=== PATIENT | male | born 1965 | race Caucasian/White ===

== ENCOUNTER → 2016-09-17 | Outpatient (CLI) | payer BC | END | disposition home or self-care (01) | LOC: PTMAIN 15:57 | PROVIDERS: ATTEND Otolaryngology | DX: K21.9 Gastro-esophageal reflux disease without esophagitis (principal) ==

== ENCOUNTER 2016-11-02 09:45 | Day surgery (SDC) | payer BC ==
[2016-10-29 18:28] VITALS: BMI 29.5
--- NOTE | 2016-11-02 07:42 | HP ---
DATE OF ADMISSION: 11/02/2016 CHIEF COMPLAINT: Lesion of the left nasal septum. HISTORY OF PRESENT ILLNESS: This patient is a 51-year-old male who was originally seen in my office complaining of having a nonhealing sore in his left nostril which had been there for at least a couple years. The patient states the area tends to become crusty and bleeds slightly and goes away completely and then returns. He denies any pain in the area or any drainage. 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 The patient was placed on approximately a 3 course of Bactroban ointment which was applied 3 times daily. Upon returning to the office after 3 weeks clinical examination revealed the area showed little evidence of significant healing. The patient does smoke cigarettes and was advised to quit for obvious health reasons and stated that he definitely would comply. Because of the nonhealing nature of this lesion, it was recommended the patient undergo a biopsy of this lesion, and at the same time we would then cauterize the lesion with electrocautery in an effort to promote healing. The patient was advised that my concern was that this might represent some type of low-grade malignancy although it would be quite rare in this particular area. PAST MEDICAL HISTORY: Reveals the patient has no known allergies to medications. He smokes approximately 2 to 4 cigars per week and was advised to quit for obvious health reasons. His current medications include Lipitor. Review of systems is positive with respect to the metabolic/endocrine system, which is positive for hypercholesterolemia. The remainder of review of systems is completely unremarkable. Previous surgeries include fundoplasty, surgery of the elbow, tonsillectomy and adenoidectomy, bilateral inguinal hernias and also an umbilical hernia repair. PHYSICAL EXAMINATION: Patient is a 51-year-old male who is alert and cooperative. HEENT EXAMINATION: Patient is normocephalic. Tympanic membranes are normal. Middle ear spaces are free of any fluid or infection. Pupils equal, round, and reactive to light and accommodation. Extraocular movements are within normal limits. Intranasal examination reveals moderate to severe septal deviation with compensatory hypertrophy of inferior turbinates and a moderate amount of clear mucus on the mucous membranes and draining down the posterior pharynx. Attention or to the left septum reveals the patient has approximately a 3 to 4 mm macular papular lesion which has slightly eroded into the mucous membrane of the nasal septum. There is some slight crusting in the area and the area is nontender to palpation. No other suspicious lesions are noted. The area is not actively bleeding at this time and appears to be quite shallow and there does not appear to be any bare cartilage exposed. Examination of oropharynx, palpation of the neck, cranial nerves II through XII and remainder of the head and neck exam are all within normal limits. The remainder of the head and neck exam is essentially unremarkable. CHEST/CARDIOVASCULAR: Both lung tao are clear to percussion and auscultation. Patient is in regular sinus rhythm. S1 and S2 are present without any murmurs, S3s or S4s. Peripheral pulses are bilaterally symmetrical and within normal limits. ABDOMEN: No evidence of any masses, megaly or tenderness. The abdomen is soft. Skin is unremarkable. Musculoskeletal and neurological are within normal limits. Rectal exam is deferred at this time because the patient has this done on a regular basis at his family physician's office. The remainder of physical exam is unremarkable. IMPRESSION: Suspicious lesion of the left nasal septum, suspect malignancy. PLAN: The patient is scheduled to undergo a biopsy of lesion of the left nasal septum with possible electrocautery of lesion under general anesthesia. Attention RNs in the presurgical area: I have not ordered any presurgical prophylactic antibiotics for this patient. The only medication that I have ordered is for the patient to receive 1000 mg of Ofirmev IV, to be given once an intravenous line has been established. If the pharmacy department sends any presurgical prophylactic antibiotics to the presurgical area for this patient they should be returned to the pharmacy and the patient's account should be credited appropriately. I have explained the operation/procedure to the patient, including the risks, benefits, side effects, alternative therapies (including not receiving the proposed treatment or service), the likelihood of the patient achieving his/her goals, and potential recuperation problems for the procedure/sedation/analgesia, as well as any blood products, if indicated. I also explained to the patient the risks, benefits, and side effects of the alternatives, as well as the risks related to not receiving the proposed procedure, care treatment or services.
[~2016-11-02 09:45] MED LIST: DEXAMETHASONE SOD PHOSPHATE 10 MG/ML 1 ML VIAL IV ONE; HYDROmorphone 1 MG/ML 1 ML SYRINGE IVP PRN; LACTATED RINGERS 1,000 ML IV SCH; MIDAZOLAM 2 MG/2 ML VIAL IV PRN; ONDANSETRON 4 MG/2 ML VIAL IVP ONE; Pre Op ABX Message 1 EACH MISC MISCELLANE ONE; SCOPOLAMINE 1.5MG/72HR PATCH TRANSDERM ONE
[2016-11-02] MEDS ORDERED: ACETAMINOPHEN IV (For NPO) 1,000 MG in EMPTY BAG 1 BAG IVPB ONE (10:45)
[2016-11-02] MEDS ORDERED: LIDOCAINE 1% 20 ML VIAL (10MG/ML) FOR IV START INTRADERMA ONE (11:11)
[2016-11-02] MEDS ORDERED: GLYCOPYRROLATE 0.2 MG/ML 2 ML VIAL ONE (12:00)
[2016-11-02] MEDS ORDERED: SUCCINYLCHOLINE CHLORIDE 100 MG/5 ML SYR IV ONE (12:00)
[2016-11-02] MEDS ORDERED: fentaNYL (PF) 50 MCG/ML 2 ML AMP ONE (12:00)
[2016-11-02] MEDS ORDERED: LIDOCAINE 1% INJ 10MG/ML (20 ML MDV) ONE (12:00)
[2016-11-02] MEDS ORDERED: ePHEDrine 50 MG/ML 1 ML AMP ONE (12:00)
[2016-11-02] MEDS ORDERED: PROPOFOL 10 MG/ML 20 ML VIAL IV ONE (12:00)
[2016-11-02] MEDS ORDERED: MIDAZOLAM 2 MG/2 ML VIAL ONE (12:00)
[2016-11-02] MEDS ORDERED: OXYMETAZOLINE 0.05% NASL SPRAY 15 ML NASAL ONE (12:22)
[2016-11-02] MEDS ORDERED: EPINEPHrine 1 MG/ML 1 ML AMP IRRIGATION ONE (12:29)
[2016-11-02 13:12] VITALS: TEMP 97.1
[2016-11-02 13:21] VITALS: RESP 16
[2016-11-02 14:15] VITALS: BP 137/88; PULSE 64
--- NOTE | 2016-11-02 17:52 | OP ---
DATE OF SERVICE: 11/02/2016 SURGEON: CELINA NEWMAN MD GREASE MAKER: PREOPERATIVE DIAGNOSIS: Lesion of the left nasal septum approximately 4 to 5 mm in diameter. POSTOPERATIVE DIAGNOSIS: Lesion of the left nasal septum approximately 4 to 5 mm in diameter; final pathology pending. OPERATION: Biopsy and cauterization of lesion of the left nasal septum. ANESTHESIA: General anesthetic. ESTIMATED BLOOD LOSS: Less than 5 mL. SPECIMENS REMOVED: COMPLICATIONS: None. OPERATIVE FINDINGS: DESCRIPTION OF PROCEDURE: The patient was placed on the operating table in supine position. After uneventful induction and endotracheal intubation, satisfactory general anesthesia was obtained. Next, the patient's head was draped in the usual and customary fashion, following which the left nasal chamber was examined, and subsequently a Cottonoid which had been saturated initially with Afrin nasal spray was placed in the left naris and left there for approximately 7 minutes to achieve maximum vasoconstriction of the area. Next, using a nasal speculum and under direct observation, the Cottonoid was removed. It was noted that the patient had a scab over the area, and this was removed using a pair of bayonet forceps without difficulty. Bleeding at this time was controlled by applying a small amount of adrenaline/epinephrine 1:1000 to a Cottonoid and applying this to the area for approximately 5 minutes. The anesthesia department was alerted to the fact that adrenaline would be used so that they would be aware in case there was any increase in blood pressure or heart rate. After approximately 5 to 7 minutes, the Cottonoid was removed and hemostasis was obtained. Multiple biopsies of the area were taken using a pair of up-biting microlaryngeal forceps, and the specimen was sent in formalin to Pathology for permanent sectioning. Next, with the electrocautery set on a low setting of 10 soto, the area was lightly cauterized with suction cautery. Next, the entire area was covered generously with the hemostatic agent Hemaderm powder. A period of approximately 5 to 10 minutes was allowed to elapse, and further inspection revealed no active bleeding. At this point the procedure was terminated. There were no intraoperative complications. The patient tolerated the procedure well and was returned to the recovery room in satisfactory condition. Final pathology is pending.
== END 2016-11-02 14:35 | disposition home or self-care (01) ==
LOC: OR 09:45
PROVIDERS: ATTEND Otolaryngology
DX: J34.89 Other specified disorders of nose and nasal sinuses (principal); J34.2 Deviated nasal septum; J34.3 Hypertrophy of nasal turbinates; F17.210 Nicotine dependence, cigarettes, uncomplicated; E78.5 Hyperlipidemia, unspecified; E78.00 Pure hypercholesterolemia, unspecified; Z79.899 Other long term (current) drug therapy
CPT/HCPCS: 88305; 30100; J2250; J0171; J1100; J2405; J2001; J3010; J0131; J0330; J2704

== ENCOUNTER 2019-04-08 12:15 | Emergency (ER) | payer BC ==
[2019-04-08] MEDS ORDERED: SODIUM CHLORIDE 0.9% 1,000 ML IV STA (13:01)
[2019-04-08] MEDS ORDERED: MORPHINE SULFATE 4 MG/ML SYRINGE IV STA (13:02)
--- NOTE | 2019-04-08 13:08 | ED ---
General Adult HPI - General Chief complaint: Fall Stated complaint: fell 8'-10' ladder/hit head Time Seen by Provider: 04/08/19 12:29 Source: patient Mode of arrival: ambulatory Limitations: no limitations - History of Present Illness Initial comments: Dictation was produced using [employer] dictation software. please excuse any grammatical, word or spelling errors. Chief Complaint: 53-year-old male presents with fall from ladder. History of Present Illness: 53-year-old male he has a significant past medical history. He states he was cutting branches. He had a letter on top of his truck. He lost his footing. His foot got caught and causing him to fall to the ground. He fell approximately 8-10 feet landing on his back. States that of all his symptoms his back hurts the most. Patient states that he did strike his head. Denies any blood thinners. Denies any daily medications. The ROS documented in this emergency department record has been reviewed and confirmed by me. Those systems with pertinent positive or negative responses have been documented in the HPI. All other systems are other negative and/or noncontributory. PHYSICAL EXAM: General Impression: Alert and oriented x3, not in acute distress, acute distress secondary to pain HEENT: Normocephalic atraumatic, extra-ocular movements intact, pupils equal and reactive to light bilaterally, mucous membranes moist. Cardiovascular: Heart regular rate and rhythm, S1&S2 audible, no murmurs, rubs or gallops Chest: Lungs clear to auscultation bilaterally, no rhonchi, no wheeze, no rales Abdomen: Bowel sounds present, abdomen soft, non-tender, non-distended, no organomegaly Musculoskeletal: Pulses present and equal in all extremities, no peripheral edema, tenderness around the lower back region Motor: no focal deficits noted Neurological: CN II-XII grossly intact, no focal motor or sensory deficits noted Skin: Intact with no visualized rashes Psych: Normal affect and mood ED course: 53-year-old male presents with back pain after fall. On arrival shows heart rate of 111 cumbersome vital signs within acceptable limits. Plan CT was obtained showing no acute traumatic injuries. Patient has chronic L1 compression fracture. Laboratory evaluation obtained showing no acute processes. Chest x-ray and pelvis x-ray were canceled given that were not performed in a timely fashion and CTs of the chest abdomen pelvis were completed and read. Patient is an Yara with minimal complications. Solid by mouth. Patient urinating without complications. Patient's pain is controlled. Is told to expect worsening symptoms tomorrow however should improve. Return parameters discussed. Patient clear for discharge. EKG interpretation: Ventricular rate 91, normal sinus rhythm,. Interval 166, QS 92, QTc 450. No VA prolongation, no QTC prolongation, no ST or T-wave changes noted. Overall, this EKG is unremarkable - Related Data Home Medications Medication Instructions Recorded Confirmed No Known Home Medications 04/08/19 04/08/19 Allergies Allergy/AdvReac Type Severity Reaction Status Date / Time codeine AdvReac Nausea & Verified 04/08/19 13:28 Vomiting Review of Systems ROS Statement: Those systems with pertinent positive or pertinent negative responses have been documented in the HPI. ROS Other: All systems not noted in ROS Statement are negative. Past Medical History Past Medical History: GERD/Reflux, Hyperlipidemia Additional Past Medical History / Comment(s): ALLERGIES. NASAL LESION CURRENTLY . HX GERD, Hiatal Hernia REPAIRED. History of Any Multi-Drug Resistant Organisms: None Reported Past Surgical History: Hernia Repair, Orthopedic Surgery, Tonsillectomy Additional Past Surgical History / Comment(s): LT Elbow TENDONITIS SURG. Fundoplication 03/05/2015. REPAIR KHALIF ING, [facility] HERNIA REPAIR. Past Anesthesia/Blood Transfusion Reactions: No Reported Reaction Past Psychological History: No Psychological Hx Reported Smoking Status: Current some day smoker Past Alcohol Use History: Occasional Past Drug Use History: None Reported - Past Family History Father Family Medical History: Cancer General Exam Limitations: no limitations Course Vital Signs 04/08/19 12:17 Temperature 97.8 F Pulse Rate 111 H Respiratory 18 Rate Blood Pressure 151/103 O2 Sat by Pulse 98 Oximetry Medical Decision Making - Lab Data Result diagrams: 04/08/19 13:05 04/08/19 13:05 Lab Results 04/08/19 04/08/19 04/08/19 Range/Units 12:59 13:05 13:05 WBC 7.3 (3.8-10.6) k/uL RBC 5.48 (4.30-5.90) m/uL Hgb 15.7 (13.0-17.5) gm/dL Hct 46.8 (39.0-53.0) % MCV 85.5 (80.0-100.0) fL MCH 28.7 (25.0-35.0) pg MCHC 33.6 (31.0-37.0) g/dL RDW 13.2 (11.5-15.5) % Plt Count 228 (150-450) k/uL Neutrophils % 73 % Lymphocytes % 18 % Monocytes % 5 % Eosinophils % 2 % Basophils % 1 % Neutrophils # 5.4 (1.3-7.7) k/uL Lymphocytes # 1.3 (1.0-4.8) k/uL Monocytes # 0.3 (0-1.0) k/uL Eosinophils # 0.1 (0-0.7) k/uL Basophils # 0.1 (0-0.2) k/uL PT (9.0-12.0) sec INR (<1.2) APTT (22.0-30.0) sec Sodium 140 (137-145) mmol/L Potassium 3.8 (3.5-5.1) mmol/L Chloride 108 H (98-107) mmol/L Carbon Dioxide 20 L (22-30) mmol/L Anion Gap 12 mmol/L BUN 17 (9-20) mg/dL Creatinine 0.87 (0.66-1.25) mg/dL Est GFR (CKD-EPI)AfAm >90 (>60 ml/min/1.73 sqM) Est GFR (CKD-EPI)NonAf >90 (>60 ml/min/1.73 sqM) Glucose 109 H (74-99) mg/dL Calcium 9.8 (8.4-10.2) mg/dL Total Bilirubin 0.6 (0.2-1.3) mg/dL AST 28 (17-59) U/L ALT 41 (21-72) U/L Alkaline Phosphatase 69 (38-126) U/L Total Protein 7.3 (6.3-8.2) g/dL Albumin 4.4 (3.5-5.0) g/dL Blood Type Blood Type Confirm O Positive Blood Type Recheck Bld Type Recheck Status Antibody Screen Spec Expiration Date 04/08/19 04/08/19 Range/Units 13:05 13:05 WBC (3.8-10.6) k/uL RBC (4.30-5.90) m/uL Hgb (13.0-17.5) gm/dL Hct (39.0-53.0) % MCV (80.0-100.0) fL MCH (25.0-35.0) pg MCHC (31.0-37.0) g/dL RDW (11.5-15.5) % Plt Count (150-450) k/uL Neutrophils % % Lymphocytes % % Monocytes % % Eosinophils % % Basophils % % Neutrophils # (1.3-7.7) k/uL Lymphocytes # (1.0-4.8) k/uL Monocytes # (0-1.0) k/uL Eosinophils # (0-0.7) k/uL Basophils # (0-0.2) k/uL PT 9.8 (9.0-12.0) sec INR 0.9 (<1.2) APTT 22.3 (22.0-30.0) sec Sodium (137-145) mmol/L Potassium (3.5-5.1) mmol/L Chloride (98-107) mmol/L Carbon Dioxide (22-30) mmol/L Anion Gap mmol/L BUN (9-20) mg/dL Creatinine (0.66-1.25) mg/dL Est GFR (CKD-EPI)AfAm (>60 ml/min/1.73 sqM) Est GFR (CKD-EPI)NonAf (>60 ml/min/1.73 sqM) Glucose (74-99) mg/dL Calcium (8.4-10.2) mg/dL Total Bilirubin (0.2-1.3) mg/dL AST (17-59) U/L ALT (21-72) U/L Alkaline Phosphatase (38-126) U/L Total Protein (6.3-8.2) g/dL Albumin (3.5-5.0) g/dL Blood Type O Positive Blood Type Confirm Blood Type Recheck No Previous Record Bld Type Recheck Status CABO Indicated Antibody Screen NEGATIVE Spec Expiration Date 04/11/2019 - 2304 Disposition Clinical Impression: Fall, Back strain Disposition: HOME SELF-CARE Condition: Good Instructions (If sedation given, give patient instructions): Fall Prevention for Older Adults (ED) Is patient prescribed a controlled substance at d/c from ED?: No Referrals: None,Stated [Primary Care Provider] - 1-2 days Time of Disposition: 16:15
[2019-04-08 13:25] LABS: Basophils # (A) 0.1 k/uL (0-0.2); Basophils % (A) 1 %; Eosinophils # (A) 0.1 k/uL (0-0.7); Eosinophils % (A) 2 %; HCT 46.8 % (39.0-53.0); HGB 15.7 gm/dL (13.0-17.5); Lymphocytes # (A) 1.3 k/uL (1.0-4.8); Lymphocytes % (A) 18 %; MCH 28.7 pg (25.0-35.0); MCHC 33.6 g/dL (31.0-37.0); MCV 85.5 fL (80.0-100.0); Mean Platelet Volume 6.9; Monocytes # (A) 0.3 k/uL (0-1.0); Monocytes % (A) 5 %; Neutrophils # (A) 5.4 k/uL (1.3-7.7); Neutrophils % (A) 73 %; Platelet Count 228 k/uL (150-450); RBC 5.48 m/uL (4.30-5.90); RDW 13.2 % (11.5-15.5); WBC 7.3 k/uL (3.8-10.6)
[2019-04-08 13:44] LABS: ALT 41 U/L (21-72); AST 28 U/L (17-59); African American GFR (CKD) >90 (>60 ml/min/1.73 sqM); Albumin 4.4 g/dL (3.5-5.0); Alkaline Phosphatase 69 U/L (38-126); Anion Gap 12 mmol/L; Blood Urea Nitrogen 17 mg/dL (9-20); Calcium 9.8 mg/dL (8.4-10.2); Carbon Dioxide 20 mmol/L (22-30); Chloride 108 mmol/L (98-107); Glucose 109 mg/dL (74-99); Non-African American GFR(CKD) >90 (>60 ml/min/1.73 sqM); Potassium 3.8 mmol/L (3.5-5.1); Sodium 140 mmol/L (137-145); Total Bilirubin 0.6 mg/dL (0.2-1.3); Total Protein 7.3 g/dL (6.3-8.2)
[2019-04-08 13:46] LABS: INR 0.9 (<1.2); Partial Thromboplastin Time 22.3 sec (22.0-30.0); Prothrombin Time 9.8 sec (9.0-12.0)
--- NOTE | 2019-04-08 14:18 | CT ---
EXAMINATION TYPE: CT brain tanja martínez DATE OF EXAM: 04/08/2019 COMPARISON: NONE HISTORY: Fall from ladder CT DLP: 1510.2 mGycm Automated exposure control for dose reduction was used. TECHNIQUE: CT scan of the head and cervical spine are performed without contrast. FINDINGS: BRAIN: Central structures are midline. There is no evidence of hydrocephalus. No acute focal lesion, mass effect or midline shift is seen. I do not see evidence of intracranial blood. Visualized portions of the paranasal sinuses and mastoids are clear. The bony calvarium is intact. IMPRESSION: NORMAL CT SCAN OF THE BRAIN. CERVICAL SPINE: Visualized portions of the lungs are clear. Prevertebral soft tissues are normal. Vertebral body height and alignment are maintained. Atlantoaxial relationships are normal. There is d egenerative disc disease and hypertrophic spondylosis at C5-6 and C6-7. There is mild uncovertebral j oint disease present at these levels. The facets are unremarkable. There is no definite protrusion id entified. No fracture is seen. IMPRESSION: 1. NO ACUTE OSSEOUS LESION. 2. DEGENERATIVE CHANGE.
--- NOTE | 2019-04-08 14:27 | CT ---
EXAMINATION TYPE: CT ChestAbdPelvis w con DATE OF EXAM: 04/08/2019 COMPARISON: NONE HISTORY: Right-sided abdominal pain. CT DLP: 682.60 mGycm Automated exposure control for dose reduction was used. TECHNIQUE: Helical acquisition through the abdomen and pelvis was obtained without oral contrast but following the intravenous administration of 100 mL of Isovue 300. The data was formatted in the axia l, coronal and sagittal projections. FINDINGS: There is atelectasis at the lung bases bilaterally. There is no evidence of pneumothorax. No significant axillary, mediastinal or hilar adenopathy. There is no pleural or pericardial fluid. T he heart is mildly enlarged. There is a small, sliding hiatal hernia. Within the abdomen, the liver, spleen and gallbladder are normal. Both adrenal glands are normal. There is a simple appearing cyst 2.7 cm cyst arising from the lower pole of the right kidney. The pancreas is unremarkable. There is no significant retroperitoneal, iliac or inguinal adenopathy. The bladder is unremarkable. There is some prostate calcification present. There is no significant diverticular change and there is no radiographic evidence of diverticulitis. The appendix is normal. Small bowel loops are normal in caliber. No free fluid and no free air is seen. There is a chronic wedge compression fracture of the L1 vertebral body, unchanged from previous. No a dditional fractures are identified. IMPRESSION: 1. NO ACUTE POSTTRAUMATIC ABNORMALITY. 2. CHRONIC WEDGE COMPRESSION FRACTURE OF THE L1 VERTEBRAL BODY. 3. 2.7 CM, SIMPLE APPEARING RIGHT RENAL CYST.
[2019-04-08] MEDS ORDERED: KETOROLAC 30 MG/ML 1 ML VIAL IVP STA (15:31)
[2019-04-08 16:45] VITALS: BP 137/93; PULSE 85; RESP 16; TEMP 97.6
== END 2019-04-08 16:44 | disposition home or self-care (01) ==
LOC: EC 12:15
DX: S39.012A Strain of muscle, fascia and tendon of lower back, initial encounter (principal); M48.56XA Collapsed vertebra, not elsewhere classified, lumbar region, initial encounter for fracture; S09.90XA Unspecified injury of head, initial encounter; F17.200 Nicotine dependence, unspecified, uncomplicated; Z88.5 Allergy status to narcotic agent; W11.XXXA Fall on and from ladder, initial encounter
CPT/HCPCS: 36415; 93005; 86900; 86901; 80053; 85025; 85610; 85730; 86850; 72125; 70450; 71260; 74177; 99284; 96374; 96375; 96361; J2270; J1885; Q9967

== ENCOUNTER → 2019-04-14 | Outpatient (CLI) | payer BC ==
--- NOTE | 2019-04-15 10:12 | NM ---
EXAMINATION TYPE: NM bone scan whole body DATE OF EXAM: 04/14/2019 COMPARISON: NONE HISTORY: Lumbar radiculopathy Delayed whole-body scanning was performed following the injection of 24.3 mCi Tc 99m MDP. Images acq uired 3.5 hours post injection. FINDINGS: There Is evidence of increased uptake involving anterior left ribs 5 through 7 which may reflect keya te fractures. Degenerative uptake is seen of the shoulders, sternoclavicular joints, scattered throug hout the thoracic spine and lumbar spine, bilateral hips compatible with degenerative uptake. No inte nse uptake is seen to suggest underlying lesion. IMPRESSION: 1. Degenerative uptake. 2. Left rib uptake may reflect healed chronic fractures. Correlate clinically.
--- NOTE | 2019-04-17 13:14 | NM ---
ADDENDUM Please Note SPECT imaging was also performed. Addendum Dictated By:Cheo Peraza MD Addendum Signed By: <Electronically signed by Cheo Peraza MD in O V> Signed Date/Time: 04/15/19 1149 EXAMINATION TYPE: NM bone scan whole body DATE OF EXAM: 04/14/2019 COMPARISON: NONE HISTORY: Lumbar radiculopathy Delayed whole-body scanning was performed following the injection of 24.3 mCi Tc 99m MDP. Images acquired 3.5 hours post injection. FINDINGS: There Is evidence of increased uptake involving anterior left ribs 5 through 7 which may reflect remote fractures. Degenerative uptake is seen of the shoulders, sternoclavicular joints, scattered throughout the thoracic spine and lumbar spine, bilateral hips compatible with degenerative uptake. No intense uptake is seen to suggest underlying lesion. IMPRESSION: 1. Degenerative uptake. 2. Left rib uptake may reflect healed chronic fractures. Correlate clinically. MTDD
== END | disposition home or self-care (01) ==
LOC: RADNMMAIN 11:10
PROVIDERS: ATTEND Physical Medicine & Rehabilitation
DX: R94.8 Abnormal results of function studies of other organs and systems (principal); M47.27 Other spondylosis with radiculopathy, lumbosacral region
CPT/HCPCS: 78306; 78320; A9503

== ENCOUNTER 2020-05-07 07:01 | Day surgery (SDC) | payer BC ==
[2020-05-06 10:10] VITALS: BMI 28.8
[~2020-05-07 07:01] MED LIST changes: -DEXAMETHASONE SOD PHOSPHATE 10 MG/ML 1 ML VIAL IV ONE; -HYDROmorphone 1 MG/ML 1 ML SYRINGE IVP PRN; -MIDAZOLAM 2 MG/2 ML VIAL IV PRN; -ONDANSETRON 4 MG/2 ML VIAL IVP ONE; -Pre Op ABX Message 1 EACH MISC MISCELLANE ONE; -SCOPOLAMINE 1.5MG/72HR PATCH TRANSDERM ONE
[2020-05-07 07:15] VITALS: TEMP 97.7
[2020-05-07] MEDS ORDERED: LIDOCAINE 1% INJ 10MG/ML (20 ML MDV) ONE (07:54)
[2020-05-07] MEDS ORDERED: IOPAMIDOL M200 10 ML VIAL ONE (07:54)
[2020-05-07] MEDS ORDERED: DEXAMETHASONE SOD PHOSPHATE 10 MG/ML 1 ML VIAL ONE (07:54)
[2020-05-07] MEDS ORDERED: MIDAZOLAM 2 MG/2 ML VIAL ONE (07:54)
[2020-05-07] MEDS ORDERED: fentaNYL (PF) 50 MCG/ML 2 ML AMP ONE (07:54)
--- NOTE | 2020-05-07 08:09 | P.PCN ---
Date of Procedure: 05/07/20 Surgeon: Janina Church Pathology: none sent Condition: stable Disposition: PACU Description of Procedure: PREOPERATIVE DIAGNOSIS: Lumbar radiculopathy POSTOPERATIVE DIAGNOSIS: Lumbar radiculopathy PROCEDURE 1. Transforaminal epidural steroid injection under fluoroscopic guidance at L4-5 level ,left side 2. Lumbar epidurogram. SURGEON: Janina Church MD ANESTHESIA: Local with 1% lidocaine; IV sedation with Versed and fentanyl. EBL: Minimal PROCEDURE INDICATION: The patient with low back pain and radiculopathy symptoms unresponsive to conservative treatment. PROCEDURE DESCRIPTION / TECHNIQUE: The patient was seen and identified in the preoperative area. Risks, benefits, complications, and alternatives were discussed with the patient. The patient agreed to proceed with the procedure and signed the consent. IV was started, and vital signs were stable. Patient was taken to the OR and time out was completed. The patient was placed in the prone position on procedure table and a pillow was placed under the abdomen to reduce lumbar lordosis. The lumbosacral area was prepped and draped in the usual sterile fashion. Critical pause was taken. Vital signs were closely monitored during the procedure. Conscious sedation was used during the procedure to decrease patients anxiety. The vertebral body of the lumbar vertebra L4 was squared off by tilting the C-arm cephalad then the C-arm was tilted to the oblique position and the target point was at the 6 o'clock position of the pedicle of then skin and deeper tissues were localized with 1% lidocaine. Subsequently, a 22-gauge 3.5- inch spinal needle was advanced under a tunneled view fluoroscopic guidance just underneath the chin of the Deondre dog at the . Under lateral fluoroscopy, the needle was then advanced to the middle of the upper one third of the foramen between(L4-5 ). After negative aspiration of CSF and blood and with no paresthesias, 1 mL of omnipaque contrast dye was injected excellent epidurogram and outlining of the L nerve root was identified. Subsequently, 2 mL of block solution containing 10 mg of Decadron and 1 mL of Lidocaine 1% PF was injected. Needle was removed and the same . At the end of the procedure, skin was cleansed, and bandages were applied. COMPLICATIONS: None COMMENTS: DISPOSITION / PLANS: The patient was placed in a supine position and transferred to the recovery area in a stable condition for observation. There was no evidence of lower extremity motor or sensory deficit after the procedure. Patient was discharged from the recovery room after meeting discharge criteria. Home discharge instructions were given to the patient by the staff.
[2020-05-07] MEDS ORDERED: IV FLUID CONTINUATION 1,000 ML IV ONE (08:12)
[2020-05-07 08:16] VITALS: RESP 16
[2020-05-07 08:27] VITALS: BP 147/90; PULSE 59
--- NOTE | 2020-05-07 08:54 | FL ---
Fluoroscopy INDICATION: Pain FINDINGS: Fluoroscopy time: 11 seconds. Images obtained: 3. IMPRESSIONS: 1. Documentation of fluoroscopy.
== END 2020-05-07 08:38 | disposition home or self-care (01) ==
LOC: ORPAIN 07:01
PROVIDERS: ATTEND Anesthesiology
DX: M54.16 Radiculopathy, lumbar region (principal); M54.5 Low back pain; Z88.5 Allergy status to narcotic agent; Z79.1 Long term (current) use of non-steroidal anti-inflammatories (NSAID)
CPT/HCPCS: 64483; J2250; J1100; J2001; J3010; Q9966; 99152

== ENCOUNTER 2020-05-29 10:20 | Emergency (ER) | payer BC ==
[2020-05-29 10:28] VITALS: RESP 18
--- NOTE | 2020-05-29 11:15 | ED ---
General Adult HPI - General Chief complaint: Recheck/Abnormal Lab/Rx Stated complaint: high BP/poss +covid Time Seen by Provider: 05/29/20 10:31 Source: patient, RN notes reviewed, old records reviewed Mode of arrival: ambulatory Limitations: no limitations - History of Present Illness Initial comments: 54-year-old male patient presents to ED for evaluation. Patient reports that his tested positive for Covid R couple days ago. Patient reports that he has been having generalized myalgias, mildly elevated blood pressures at home in the 150's. Patient reports that he had some tingling of the skin on his chest. He denies any chest pain or shortness of breath. He denies any other acute complaints. Systemic: Pt denies fatigue, fever/chills, rash. Pt denies weakness, night sweats, weight loss. Neuro: Pt denies headache, visual disturbances, syncope or pre-syncope. HEENT: Pt denies ocular discharge or irritation, otalgia, rhinorrhea, pharyngitis or notable lymphadenopathy. Cardiopulmonary: Pt denies chest pain, SOB, heart palpitations, dyspnea on exertion. Abdominal/GI: Pt denies abdominal pain, n/v/d. : Pt denies dysuria, burning w/ urination, frequency/urgency. Denies new onset urinary or bowel incontinence. MSK: Pt denies myalgia, loss of strength or function in extremities. Neuro: Pt denies new onset weakness, paresthesias. - Related Data Home Medications Medication Instructions Recorded Confirmed Celecoxib [CeleBREX] 200 mg PO BID 04/17/20 05/29/20 HYDROcodone/APAP 7.5-325MG [[place] 1 tab PO Q6HR PRN 05/06/20 05/29/20 7.5-325] Acetaminophen Tab [Tylenol] 650 mg PO Q6H PRN 05/29/20 05/29/20 Ibuprofen [Motrin] 800 mg PO BID PRN 05/29/20 05/29/20 Previous Rx's Medication Instructions Recorded Gabapentin 300 mg PO TID 30 Days #90 cap 04/18/20 Allergies Allergy/AdvReac Type Severity Reaction Status Date / Time codeine AdvReac Nausea & Verified 05/29/20 11:53 Vomiting Review of Systems ROS Statement: Those systems with pertinent positive or pertinent negative responses have been documented in the HPI. ROS Other: All systems not noted in ROS Statement are negative. Past Medical History Past Medical History: GERD/Reflux, Hyperlipidemia, Hypertension Additional Past Medical History / Comment(s): SEASONAL ALLERGIES History of Any Multi-Drug Resistant Organisms: None Reported Past Surgical History: Hernia Repair, Orthopedic Surgery, Tonsillectomy Additional Past Surgical History / Comment(s): LT Elbow TENDONITIS SURG. Fundoplication 03/05/2015. REPAIR KHALIF ING, UMB HERNIA REPAIR. NASAL LESION REMOVED Past Anesthesia/Blood Transfusion Reactions: No Reported Reaction Past Psychological History: No Psychological Hx Reported Smoking Status: Never smoker Past Alcohol Use History: Occasional Past Drug Use History: Marijuana - Past Family History Father Family Medical History: Cancer General Exam - General Exam Comments Initial Comments: Constitutional: NAD, AOX3, Pt has pleasant affect. HEENT: NC/AT, trachea midline, neck supple, no lymphadenopathy. Posterior pharynx non erythematous, without exudates. External ears appear normal, without discharge. Mucous membranes moist. Eyes PERRLA, EOM intact. There is no scleral icterus. No pallor noted. Cardiopulmonary: RRR, no murmurs, rubs or gallops, no JVD noted. Lungs CTAB in anterior and posterior tao. No peripheral edema. Abdominal exam: Abdomen soft and non-distended. Abdomen non-tender to palpation in all 4 quadrants. Bowel sounds active in LLQ. No hepatosplenomegaly. No ecchymosis Neuro: CN II-XII intact. No nuchal rigidity. No raccon eyes, no hernandez sign, no hemotympanum. No cervical spinal tenderness. MSK: No posterior calf tenderness bilaterally, homans sign negative bilaterally. Posterior tibialis and radial pulse +2 bilaterally. Sensation intact in upper and lower extremities. Full active ROM in upper and lower extremities, 5/5 stregnth. Limitations: no limitations Course Vital Signs 05/29/20 05/29/20 10:22 14:17 Temperature 97.9 F Pulse Rate 71 80 Respiratory 18 18 Rate Blood Pressure 153/116 144/97 O2 Sat by Pulse 98 98 Oximetry Medical Decision Making - Medical Decision Making 54-year-old male patient to ED for evaluation. Patient tested positive for Covid recently. Patient had generalized myalgias, as, tingling in chest and mildly elevated blood pressures at home. Rest evaluation. Physical exam negative for acute pathology. Blood pressure mildly elevated here. EKG is nonischemic. Chest x-ray negative for pneumonia. Patient is tested for coronavirus. evaluation patient reports that he has a mild waxing and waning headache. He denies any red flag symptoms. Neurologic exam is intact. Intracranial imaging was declined by patient. Will follow up with PCP and return to ED with any worsening symptoms. Case discussed with Dr. Ayala. - Lab Data Result diagrams: 05/29/20 11:28 05/29/20 11: Lab Results 05/29/20 05/29/20 05/29/20 Range/Units 11:28 11: 11: WBC 4.9 (3.8-10.6) k/uL RBC 5.43 (4.30-5.90) m/uL Hgb 16.1 (13.0-17.5) gm/dL Hct 48.9 (39.0-53.0) % MCV 90.1 (80.0-100.0) fL MCH 29.7 (25.0-35.0) pg MCHC 32.9 (31.0-37.0) g/dL RDW 12.8 (11.5-15.5) % Plt Count 246 (150-450) k/uL Neutrophils % 58 % Lymphocytes % 30 % Monocytes % 6 % Eosinophils % 3 % Basophils % 1 % Neutrophils # 2.8 (1.3-7.7) k/uL Lymphocytes # 1.5 (1.0-4.8) k/uL Monocytes # 0.3 (0-1.0) k/uL Eosinophils # 0.2 (0-0.7) k/uL Basophils # 0.0 (0-0.2) k/uL Sodium 137 (137-145) mmol/L Potassium 4.4 (3.5-5.1) mmol/L Chloride 109 H (98-107) mmol/L Carbon Dioxide 23 (22-30) mmol/L Anion Gap 5 mmol/L BUN 12 (9-20) mg/dL Creatinine 0.74 (0.66-1.25) mg/dL Est GFR (CKD-EPI)AfAm >90 (>60 ml/min/1.73 sqM) Est GFR (CKD-EPI)NonAf >90 (>60 ml/min/1.73 sqM) Glucose 98 (74-99) mg/dL Calcium 9.4 (8.4-10.2) mg/dL Magnesium 2.0 (1.6-2.3) mg/dL Total Bilirubin 0.6 (0.2-1.3) mg/dL AST 20 (17-59) U/L ALT 19 (4-49) U/L Alkaline Phosphatase 56 (38-126) U/L Troponin I <0.012 (0.000-0.034) ng/mL Total Protein 6.8 (6.3-8.2) g/dL Albumin 4.1 (3.5-5.0) g/dL - EKG Data -: EKG Interpreted by Me (and Dr. Ayala ) EKG Comments: Ventricular Disposition Clinical Impression: Suspected COVID-19 virus infection, Myalgia, Headache Disposition: HOME SELF-CARE Condition: Stable Instructions (If sedation given, give patient instructions): Musculoskeletal Pain (ED), Acute Headache (ED) Additional Instructions: Follow up with PCP tomorrow. Continue to monitor blood pressure at home. Return to ED with any worsening symptoms Is patient prescribed a controlled substance at d/c from ED?: No Referrals: Thom Feldman MD [Primary Care Provider] - 1-2 days
[2020-05-29 11:59] LABS: Basophils % (A) 1 %; Eosinophils # (A) 0.2 k/uL (0-0.7); Eosinophils % (A) 3 %; HCT 48.9 % (39.0-53.0); HGB 16.1 gm/dL (13.0-17.5); Lymphocytes # (A) 1.5 k/uL (1.0-4.8); Lymphocytes % (A) 30 %; MCH 29.7 pg (25.0-35.0); MCHC 32.9 g/dL (31.0-37.0); MCV 90.1 fL (80.0-100.0); Mean Platelet Volume 7.3; Monocytes # (A) 0.3 k/uL (0-1.0); Monocytes % (A) 6 %; Neutrophils # (A) 2.8 k/uL (1.3-7.7); Neutrophils % (A) 58 %; Platelet Count 246 k/uL (150-450); RBC 5.43 m/uL (4.30-5.90); RDW 12.8 % (11.5-15.5); WBC 4.9 k/uL (3.8-10.6)
--- NOTE | 2020-05-29 12:08 | XR ---
EXAMINATION TYPE: XR chest 1V DATE OF EXAM: 05/29/2020 COMPARISON: Chest x-ray March 21, 2014. CT chest April 08, 2019 HISTORY: Chest pain weakness and fever. TECHNIQUE: Single AP portable frontal view of the chest is obtained. FINDINGS: There is persistent lateral left basilar linear scarring and/or atelectasis. There is no n ew suspicious focal air space opacity, pleural effusion, or pneumothorax seen bilaterally. The cardi ac silhouette size is stable and within normal limits. The osseous structures are intact. Overlying EKG leads currently. IMPRESSION: No new suspicious acute infiltrate.
[2020-05-29 12:11] LABS: ALT 19 U/L (4-49); AST 20 U/L (17-59); African American GFR (CKD) >90 (>60 ml/min/1.73 sqM); Albumin 4.1 g/dL (3.5-5.0); Alkaline Phosphatase 56 U/L (38-126); Anion Gap 5 mmol/L; Blood Urea Nitrogen 12 mg/dL (9-20); Calcium 9.4 mg/dL (8.4-10.2); Carbon Dioxide 23 mmol/L (22-30); Chloride 109 mmol/L (98-107); Glucose 98 mg/dL (74-99); Non-African American GFR(CKD) >90 (>60 ml/min/1.73 sqM); Potassium 4.4 mmol/L (3.5-5.1); Sodium 137 mmol/L (137-145); Total Bilirubin 0.6 mg/dL (0.2-1.3); Total Protein 6.8 g/dL (6.3-8.2)
[2020-05-29 14:18] VITALS: BP 144/97; PULSE 80
[2020-05-29 14:57] VITALS: TEMP 98.6
== END 2020-05-29 14:57 | disposition home or self-care (01) ==
LOC: EC 10:20
DX: Z20.828 Contact with and (suspected) exposure to other viral communicable diseases (principal); M79.10 Myalgia, unspecified site; R51.9 Headache, unspecified; I10 Essential (primary) hypertension; Z79.899 Other long term (current) drug therapy; Z88.5 Allergy status to narcotic agent; Z91.048 Other nonmedicinal substance allergy status
CPT/HCPCS: 36415; 93005; 80053; 83735; 84484; 85025; 71045; 99284; U0003

== ENCOUNTER → 2020-06-05 | Outpatient (CLI) | payer BC ==
[2020-06-05 10:21] VITALS: BP 143/97; PULSE 62; RESP 18; TEMP 98.5
--- NOTE | 2020-06-05 10:52 | P.PN ---
Subjective Progress Note Date: 06/05/20 This is a follow-up visit for this 54 years old male with a history of severe low back pain with radiation to the left lower extremity is diagnosed with lumbar bulging disc disease and lumbar radiculopathy, and lumbar spondylosis with lumbar facet arthropathy previously we have done, left-sided transforaminal epidural steroid injection at L4 5 levels he reported he had 0 benefit from the injection, he continued to have severe low back pain and he reported that the numbness and tingling sensation in his left lower extremity improved after he started on Neurontin 300 mg 3 times a day, denies any side effect of the medication he denies any excessive drowsiness and sleepiness, denies any fever or night sweats Objective - Vital Signs Vital signs: Vital Signs Temp 98.5 F 06/05/20 10:16 Pulse 62 06/05/20 10:16 Resp 18 06/05/20 10:16 BP 143/97 06/05/20 10:16 Pulse Ox 96 06/05/20 10:16 - Exam Physical Examinations : -Constitutiona : Cooperative , not in acute distress . -HEENT : nech : supple , no Lymphadenopathy , normal thyroid size . : eyes : no ptosis , no icterus, no ph otophobia . - neurologic : Cranial nerve II to XII intact , no focal neurological deffecit . -psychatric : alert , oriented X 3 , appropriate affect , intact judgment and insight . -Lymphatic : no Lymphadenopathy . - musculoskeltal : Lumber spine moter stegnth lower extremities ,thigh and legs 5/5 Right side , 5/5 Left side deep tendon reflexes : normal Knee Jerk , normal ankle Jerk lumber facet Loading Test = negative Right , positive Left Range of motion of the lumbar spine Flexion 30 degrees, extension 10 degrees strait leg raising test = negative bilaterally Fabere test= negative bilaterally Sever tenderness over the Sacroiliac joint on the Left sides MRI of the lumbar spine multilevel lumbar facet arthropathy from L2-3 and C4 L4 5 and L5-S1 lumbar disc protrusion at L5-S1 and L4 5 Assessment and Plan Plan: Assessment and plan=1-lumbar radiculopathy. 2-lumbar degenerative disc disease. 3-Lumber spondylosis with lumbar facet arthropathy without myelopathy. 4-left sacroiliitis. Patient had no benefit from left-sided transforaminal epidural steroid injection Patient could benefit from left side medial branch block L3, L4 , L5 Patient will follow up with Dr. Anderson for evaluation. - PQRS measures = - Patient's medications are documented in the chart. -Tobacco use is negative and counseling.Given. -Patient's has not received pneumococcal vaccine. -Advanced care planning discussed, patient not eligible. -Opiate contract signed. -Pain positive and follow-up visit/procedure is scheduled. -Patient's blood pressure measured [143/97 ] , and documented in the record ,and patient will follow up with the primary care. -Patient's weight was measured and body mass index [29.2 ] above the normal limits and counseling was done. and patient instructed to follow-up with the primary care physician. -Patient was not identified as an unhealthy alcohol user Time with Patient: Less than 30
== END | disposition home or self-care (01) ==
LOC: PNWHC3 09:29
PROVIDERS: ATTEND Specialist
DX: M51.16 Intervertebral disc disorders with radiculopathy, lumbar region (principal); M47.26 Other spondylosis with radiculopathy, lumbar region; M46.1 Sacroiliitis, not elsewhere classified
CPT/HCPCS: 99211

== ENCOUNTER 2020-06-11 13:27 | Emergency (ER) | payer BC ==
[2020-06-11 13:33] VITALS: RESP 16; TEMP 98.2
[2020-06-11] MEDS ORDERED: SODIUM CHLORIDE 0.9% 1,000 ML IV STA (13:52)
--- NOTE | 2020-06-11 13:57 | ED ---
General Adult HPI - General Chief complaint: Arrhythmia/Palpitations Stated complaint: palpitations Time Seen by Provider: 06/11/20 13:42 Source: patient, family, EMS, RN notes reviewed Mode of arrival: EMS Limitations: no limitations - History of Present Illness Initial comments: patient is a pleasant 54-year-old male presenting to the emergency Department with complaints of palpitations. Onset of symptoms was a couple weeks ago. Symptoms have been intermittent. Symptoms were much worse today. Patient felt lightheaded today. Patient feels his heart is skipping. Patient denies any chest pain or any chest discomfort despite being asked several times. No dyspnea. No nausea. No diaphoresis. Patient currently symptom-free. No leg pain or leg swelling. - Related Data Home Medications Medication Instructions Recorded Confirmed Celecoxib [CeleBREX] 200 mg PO BID 04/17/20 06/11/20 HYDROcodone/APAP 7.5-325MG [[place] 1 tab PO BID 05/06/20 06/11/20 7.5-325] Xanax (Unknown Dose) 1 tab PO ONCE 06/11/20 06/11/20 Previous Rx's Medication Instructions Recorded Gabapentin [Neurontin] 300 mg PO TID #90 cap 06/05/20 Allergies Allergy/AdvReac Type Severity Reaction Status Date / Time codeine AdvReac Nausea & Verified 06/11/20 14:15 Vomiting Review of Systems ROS Statement: Those systems with pertinent positive or pertinent negative responses have been documented in the HPI. ROS Other: All systems not noted in ROS Statement are negative. Constitutional: Denies: fever Eyes: Denies: eye pain ENT: Denies: ear pain Respiratory: Denies: cough, dyspnea Cardiovascular: Reports: palpitations. Denies: chest pain Endocrine: Denies: fatigue Gastrointestinal: Denies: abdominal pain Genitourinary: Denies: dysuria Musculoskeletal: Denies: back pain Skin: Denies: rash Neurological: Denies: headache, weakness Past Medical History Past Medical History: GERD/Reflux, Hyperlipidemia, Hypertension Additional Past Medical History / Comment(s): SEASONAL ALLERGIES History of Any Multi-Drug Resistant Organisms: None Reported Past Surgical History: Hernia Repair, Orthopedic Surgery, Tonsillectomy Additional Past Surgical History / Comment(s): LT Elbow TENDONITIS SURG. Fundoplication 03/05/2015. REPAIR KHALIF ING, UMB HERNIA REPAIR. NASAL LESION RE MOVED Past Anesthesia/Blood Transfusion Reactions: No Reported Reaction Past Psychological History: No Psychological Hx Reported Smoking Status: Never smoker Past Alcohol Use History: None Reported Past Drug Use History: None Reported - Past Family History Father Family Medical History: Cancer General Exam Limitations: no limitations General appearance: alert, in no apparent distress Head exam: Present: normocephalic Eye exam: Present: normal appearance, PERRL, EOMI ENT exam: Present: normal oropharynx Neck exam: Present: normal inspection Respiratory exam: Present: normal lung sounds bilaterally Cardiovascular Exam: Present: regular rate, normal rhythm, normal heart sounds Expanded Peripheral pulses: 2+: Radial (R), Radial (L), Dorsalis Pedis (R), Dorsalis Pedis (L) GI/Abdominal exam: Present: soft. Absent: tenderness Extremities exam: Present: normal inspection. Absent: pedal edema, calf tenderness Neurological exam: Present: alert, oriented X3, CN II-XII intact. Absent: motor sensory deficit Expanded Speech: Present: fluid speech Cranial nerves: EOM's Intact: Normal Motor strength exam: RUE: 5, LUE: 5, RLE: 5, LLE: 5 Eye Response: (4) open spontaneously Motor Response: (6) obeys commands Verbal Response: (5) oriented Psychiatric exam: Present: normal affect, normal mood Skin exam: Present: normal color Course Vital Signs 06/11/20 13:29 Temperature 98.2 F Pulse Rate 82 Respiratory 16 Rate Blood Pressure 143/95 O2 Sat by Pulse 98 Oximetry EKG Findings - EKG Comments: EKG Findings:: no sinus rhythm 73. MI 158. QRS 82. QT 366. QTc 43. Normal axis. Normal QRS. No acute ST change. Medical Decision Making - Lab Data Result diagrams: 06/11/20 13:57 06/11/20 14:42 Lab Results 06/11/20 06/11/20 06/11/20 Range/Units 13:57 13:57 13:57 WBC 7.9 (3.8-10.6) k/uL RBC 5.18 (4.30-5.90) m/uL Hgb 15.4 (13.0-17.5) gm/dL Hct 45.3 (39.0-53.0) % MCV 87.4 (80.0-100.0) fL MCH 29.7 (25.0-35.0) pg MCHC 34.0 (31.0-37.0) g/dL RDW 12.7 (11.5-15.5) % Plt Count 204 (150-450) k/uL MPV 8.1 Neutrophils % 76 % Lymphocytes % 16 % Monocytes % 4 % Eosinophils % 1 % Basophils % 1 % Neutrophils # 6.0 (1.3-7.7) k/uL Lymphocytes # 1.3 (1.0-4.8) k/uL Monocytes # 0.3 (0-1.0) k/uL Eosinophils # 0.1 (0-0.7) k/uL Basophils # 0.1 (0-0.2) k/uL PT 9.9 (9.0-12.0) sec INR 0.9 (<1.2) APTT 23.4 (22.0-30.0) sec Sodium (137-145) mmol/L Potassium (3.5-5.1) mmol/L Chloride (98-107) mmol/L Carbon Dioxide (22-30) mmol/L Anion Gap mmol/L BUN (9-20) mg/dL Creatinine (0.66-1.25) mg/dL Est GFR (CKD-EPI)AfAm (>60 ml/min/1.73 sqM) Est GFR (CKD-EPI)NonAf (>60 ml/min/1.73 sqM) Glucose (74-99) mg/dL Calcium (8.4-10.2) mg/dL Magnesium (1.6-2.3) mg/dL Total Bilirubin (0.2-1.3) mg/dL AST (17-59) U/L ALT (4-49) U/L Alkaline Phosphatase (38-126) U/L Troponin I <0.012 (0.000-0.034) ng/mL Total Protein (6.3-8.2) g/dL Albumin (3.5-5.0) g/dL Free T4 (0.78-2.19) ng/dL Free T3 pg/mL (2.8-5.3) pg/ml 06/11/20 Range/Units 14:42 WBC (3.8-10.6) k/uL RBC (4.30-5.90) m/uL Hgb (13.0-17.5) gm/dL Hct (39.0-53.0) % MCV (80.0-100.0) fL MCH (25.0-35.0) pg MCHC (31.0-37.0) g/dL RDW (11.5-15.5) % Plt Count (150-450) k/uL MPV Neutrophils % % Lymphocytes % % Monocytes % % Eosinophils % % Basophils % % Neutrophils # (1.3-7.7) k/uL Lymphocytes # (1.0-4.8) k/uL Monocytes # (0-1.0) k/uL Eosinophils # (0-0.7) k/uL Basophils # (0-0.2) k/uL PT (9.0-12.0) sec INR (<1.2) APTT (22.0-30.0) sec Sodium 137 (137-145) mmol/L Potassium 4.0 (3.5-5.1) mmol/L Chloride 110 H (98-107) mmol/L Carbon Dioxide 24 (22-30) mmol/L Anion Gap 3 mmol/L BUN 18 (9-20) mg/dL Creatinine 0.85 (0.66-1.25) mg/dL Est GFR (CKD-EPI)AfAm >90 (>60 ml/min/1.73 sqM) Est GFR (CKD-EPI)NonAf >90 (>60 ml/min/1.73 sqM) Glucose 110 H (74-99) mg/dL Calcium 9.2 (8.4-10.2) mg/dL Magnesium 2.0 (1.6-2.3) mg/dL Total Bilirubin 0.5 (0.2-1.3) mg/dL AST 21 (17-59) U/L ALT 20 (4-49) U/L Alkaline Phosphatase 59 (38-126) U/L Troponin I (0.000-0.034) ng/mL Total Protein 6.7 (6.3-8.2) g/dL Albumin 4.1 (3.5-5.0) g/dL Free T4 1.03 (0.78-2.19) ng/dL Free T3 pg/mL 4.1 (2.8-5.3) pg/ml - Radiology Data Radiology results: image reviewed (His x-ray shows no acute process) Disposition Clinical Impression: Palpitations Disposition: HOME SELF-CARE Condition: Stable Instructions (If sedation given, give patient instructions): Heart Palpitations (ED) Additional Instructions: please follow-up with primary care physician in the next day or 2 for recheck. Consider Holter monitor. Return forincreased heart rate, passing out, chest pain, difficulty breathing, worsening or change in symptoms or other concerns. Is patient prescribed a controlled substance at d/c from ED?: No Referrals: Thom Feldman MD [Primary Care Provider] - 1-2 days Jesu Garcia MD [STAFF PHYSICIAN] - 1-2 days Time of Disposition: 15:19
[2020-06-11 14:20] LABS: Basophils # (A) 0.1 k/uL (0-0.2); Basophils % (A) 1 %; Eosinophils # (A) 0.1 k/uL (0-0.7); Eosinophils % (A) 1 %; HCT 45.3 % (39.0-53.0); HGB 15.4 gm/dL (13.0-17.5); Lymphocytes # (A) 1.3 k/uL (1.0-4.8); Lymphocytes % (A) 16 %; MCH 29.7 pg (25.0-35.0); MCV 87.4 fL (80.0-100.0); Mean Platelet Volume 8.1; Monocytes # (A) 0.3 k/uL (0-1.0); Monocytes % (A) 4 %; Neutrophils % (A) 76 %; Platelet Count 204 k/uL (150-450); RBC 5.18 m/uL (4.30-5.90); RDW 12.7 % (11.5-15.5); WBC 7.9 k/uL (3.8-10.6)
--- NOTE | 2020-06-11 14:25 | XR ---
EXAMINATION TYPE: XR chest 2V DATE OF EXAM: 06/11/2020 COMPARISON: Prior chest x-ray 05/29/2020 HISTORY: Dysrhythmia TECHNIQUE: Frontal and lateral views of the chest are obtained. FINDINGS: There is no focal air space opacity, pleural effusion, or pneumothorax seen. The cardiac silhouette size is likely stable accounting for differences in technique. The osseous structures ar e intact. IMPRESSION: No acute cardiopulmonary process.
[2020-06-11 14:29] LABS: INR 0.9 (<1.2); Partial Thromboplastin Time 23.4 sec (22.0-30.0); Prothrombin Time 9.9 sec (9.0-12.0)
[2020-06-11 14:59] LABS: ALT 20 U/L (4-49); AST 21 U/L (17-59); African American GFR (CKD) >90 (>60 ml/min/1.73 sqM); Albumin 4.1 g/dL (3.5-5.0); Alkaline Phosphatase 59 U/L (38-126); Anion Gap 3 mmol/L; Blood Urea Nitrogen 18 mg/dL (9-20); Calcium 9.2 mg/dL (8.4-10.2); Carbon Dioxide 24 mmol/L (22-30); Chloride 110 mmol/L (98-107); Glucose 110 mg/dL (74-99); Non-African American GFR(CKD) >90 (>60 ml/min/1.73 sqM); Sodium 137 mmol/L (137-145); Total Bilirubin 0.5 mg/dL (0.2-1.3); Total Protein 6.7 g/dL (6.3-8.2)
[2020-06-11 15:14] LABS: T4, Free (Free Thyroxine) 1.03 ng/dL (0.78-2.19)
[2020-06-11 15:38] VITALS: BP 124/73; PULSE 89
== END 2020-06-11 15:37 | disposition home or self-care (01) ==
LOC: EC 13:27
DX: R00.2 Palpitations (principal); R42 Dizziness and giddiness; Z88.5 Allergy status to narcotic agent
CPT/HCPCS: 36415; 71046; 80053; 83735; 84439; 84443; 84481; 84484; 85025; 85610; 85730; 93005; 99285

== ENCOUNTER 2020-06-21 18:23 | Observation (INO) | payer BC ==
--- NOTE | 2020-06-21 19:00 | ED ---
General Adult HPI - General Chief complaint: Chest Pain Stated complaint: SOB, L side numbness Time Seen by Provider: 06/21/20 18:44 Source: patient Mode of arrival: wheelchair Limitations: no limitations - History of Present Illness Initial comments: Dictation was produced using Ver[employer] dictation software. please excuse any grammatical, word or spelling errors. This patient was cared for during a federal and state declared state of emergency secondary to Covid 19 Chief Complaint: 54-year-old male brought back to the emergency department for palpitations History of Present Illness: 54-year-old male history in emergency department for palpitations. Patient stated his episode last for approximately 40 minutes. Patient seen in emergency department last week when his symptoms were evaluated in emergency department. He was discharged and told to follow-up with his primary care doctor supervisor hot dip tinning. Patient had a Holter monitor that he was using for several days and he had it given back for analysis. Patient states that today he had a very long episode where his or symptomatic. He checked his heart rate and wasn't sure of the exact rate was. Patient denies any chest pain. He states that he was having palpitations while en route to the emergency department however ever since being placed in the emergency department room his symptoms palpitations 108. The ROS documented in this emergency department record has been reviewed and confirmed by me. Those systems with pertinent positive or negative responses have been documented in the HPI. All other systems are other negative and/or noncontributory. PHYSICAL EXAM: General Impression: Alert and oriented x3, not in acute distress HEENT: Normocephalic atraumatic, extra-ocular movements intact, pupils equal and reactive to light bilaterally, mucous membranes moist. Cardiovascular: Heart regular rate and rhythm Chest: Able to complete full sentences, no retractions, no tachypnea Abdomen: abdomen soft, non-tender, non-distended, no organomegaly Musculoskeletal: Pulses present and equal in all extremities, no peripheral edema Motor: no focal deficits noted Neurological: CN II-XII grossly intact, no focal motor or sensory deficits noted Skin: Intact with no visualized rashes Psych: Normal affect and mood ED course: 54-year-old male presents today with worsening palpitations. All signs upon arrival are within acceptable limits. EKG shows normal sinus rhythm. Laboratory evaluation obtained. CBC unremarkable. Metabolic panel is negative. Electrolytes are normal. First troponin is negative. Disposition options were discussed with patient and patient's . They would prefer to be admitted to observation with cardiology consultation and overnight cardiac monitoring. Case is discussed with Dr. douglass was went except patient's [facility] of [facility] hospitalist group. Patient reevaluated at bedside approximately 8:00 PM in stable medical condition. EKG interpretation: Ventricular rate 77, normal sinus rhythm,. Interval 156, QRS 84, QTC 411. No MT prolongation, no QTC prolongation, no ST or T-wave changes noted. EKG compared to 06/11/2020 showing no changes. Overall, this EKG is unremarkable - Related Data Home Medications Medication Instructions Recorded Confirmed Celecoxib [CeleBREX] 200 mg PO BID 04/17/20 06/11/20 HYDROcodone/APAP 7.5-325MG [[place] 1 tab PO BID 05/06/20 06/11/20 7.5-325] Xanax (Unknown Dose) 1 tab PO ONCE 06/11/20 06/11/20 Previous Rx's Medication Instructions Recorded Gabapentin [Neurontin] 300 mg PO TID #90 cap 06/05/20 Allergies Allergy/AdvReac Type Severity Reaction Status Date / Time codeine AdvReac Nausea & Verified 06/21/20 18:29 Vomiting Review of Systems ROS Statement: Those systems with pertinent positive or pertinent negative responses have been documented in the HPI. ROS Other: All systems not noted in ROS Statement are negative. Past Medical History Past Medical History: GERD/Reflux, Hyperlipidemia, Hypertension Additional Past Medical History / Comment(s): SEASONAL ALLERGIES, recent wore halter monitor History of Any Multi-Drug Resistant Organisms: None Reported Past Surgical History: Hernia Repair, Orthopedic Surgery, Tonsillectomy Additional Past Surgical History / Comment(s): LT Elbow TENDONITIS SURG. Fundoplication 03/05/2015. REPAIR KHALIF ING, UMB HERNIA REPAIR. NASAL LESION REMOVED Past Anesthesia/Blood Transfusion Reactions: No Reported Reaction Past Psychological History: No Psychological Hx Reported Smoking Status: Never smoker Past Alcohol Use History: None Reported Past Drug Use History: Marijuana - Past Family History Father Family Medical History: Cancer General Exam Limitations: no limitations Course Vital Signs 06/21/20 18:27 Temperature 97.5 F L Pulse Rate 97 Respiratory 18 Rate Blood Pressure 182/105 O2 Sat by Pulse 100 Oximetry Medical Decision Making - Lab Data Result diagrams: 06/21/20 19:03 06/21/20 19:03 Lab Results 06/21/20 06/21/20 06/21/20 Range/Units 19:03 19:03 19:03 WBC 7.2 (3.8-10.6) k/uL RBC 5.67 (4.30-5.90) m/uL Hgb 16.3 (13.0-17.5) gm/dL Hct 49.4 (39.0-53.0) % MCV 87.2 (80.0-100.0) fL MCH 28.7 (25.0-35.0) pg MCHC 32.9 (31.0-37.0) g/dL RDW 13.1 (11.5-15.5) % Plt Count 239 (150-450) k/uL MPV 7.3 Neutrophils % 62 % Lymphocytes % 26 % Monocytes % 5 % Eosinophils % 4 % Basophils % 1 % Neutrophils # 4.5 (1.3-7.7) k/uL Lymphocytes # 1.8 (1.0-4.8) k/uL Monocytes # 0.4 (0-1.0) k/uL Eosinophils # 0.3 (0-0.7) k/uL Basophils # 0.1 (0-0.2) k/uL Sodium 139 (137-145) mmol/L Potassium 3.9 (3.5-5.1) mmol/L Chloride 109 H (98-107) mmol/L Carbon Dioxide 22 (22-30) mmol/L Anion Gap 8 mmol/L BUN 18 (9-20) mg/dL Creatinine 0.92 (0.66-1.25) mg/dL Est GFR (CKD-EPI)AfAm >90 (>60 ml/min/1.73 sqM) Est GFR (CKD-EPI)NonAf >90 (>60 ml/min/1.73 sqM) Glucose 111 H (74-99) mg/dL Calcium 9.6 (8.4-10.2) mg/dL Ionized Calcium [place] 5.3 (4.5-5.3) mg/dL Magnesium 1.9 (1.6-2.3) mg/dL Troponin I <0.012 (0.000-0.034) ng/mL Disposition Clinical Impression: Palpitations Disposition: ADMITTED IP TO THIS HOSP Condition: Fair Referrals: Thom Feldman MD [Primary Care Provider] - 1-2 days Decision Time: 20:09
[2020-06-21 19:21] LABS: Ionized Calcium 5.3 mg/dL (4.5-5.3)
[2020-06-21 19:25] LABS: Basophils # (A) 0.1 k/uL (0-0.2); Basophils % (A) 1 %; Eosinophils # (A) 0.3 k/uL (0-0.7); Eosinophils % (A) 4 %; HCT 49.4 % (39.0-53.0); HGB 16.3 gm/dL (13.0-17.5); Lymphocytes # (A) 1.8 k/uL (1.0-4.8); Lymphocytes % (A) 26 %; MCH 28.7 pg (25.0-35.0); MCHC 32.9 g/dL (31.0-37.0); MCV 87.2 fL (80.0-100.0); Mean Platelet Volume 7.3; Monocytes # (A) 0.4 k/uL (0-1.0); Monocytes % (A) 5 %; Neutrophils # (A) 4.5 k/uL (1.3-7.7); Neutrophils % (A) 62 %; Platelet Count 239 k/uL (150-450); RBC 5.67 m/uL (4.30-5.90); RDW 13.1 % (11.5-15.5); WBC 7.2 k/uL (3.8-10.6)
[2020-06-21 19:30] LABS: African American GFR (CKD) >90 (>60 ml/min/1.73 sqM); Anion Gap 8 mmol/L; Blood Urea Nitrogen 18 mg/dL (9-20); Calcium 9.6 mg/dL (8.4-10.2); Carbon Dioxide 22 mmol/L (22-30); Chloride 109 mmol/L (98-107); Glucose 111 mg/dL (74-99); Magnesium 1.9 mg/dL (1.6-2.3); Non-African American GFR(CKD) >90 (>60 ml/min/1.73 sqM); Potassium 3.9 mmol/L (3.5-5.1); Sodium 139 mmol/L (137-145)
[2020-06-22] MEDS ORDERED: HYDROcodone/APAP 7.5-325MG 1 EACH TAB PO PRN (00:35)
[2020-06-22] MEDS: GABAPENTIN 300 MG CAP PO SCH ×2 (01:44→09:39)
[2020-06-22 08:11] VITALS: PULSE 62; RESP 18; TEMP 97.6
--- NOTE | 2020-06-22 08:46 | P.CRDCN ---
History of Present Illness Consult date: 06/22/20 Requesting physician: Levi E Trevor Reason for Consult (text): palpitations Chief complaint: palpitations History of present illness: This pleasant 54-year-old gentleman with no prior diagnosis of hypertension or diabetes, history of hyperlipidemia that he was treated for many years ago but has not recently been treated for this, occasional cigar and marijuana smoker, occasional alcohol intake and drinks about 2 cups of coffee daily. He's been recently being treated by Dr. Anderson for a back injury and his current home medications include gabapentin, [place] and Celebrex. Presented to the emergency department yesterday after developing 40 minute episode of palpitations with dizziness. He was seen and evaluated in the emergency department on the for the same at which time he had near syncope. He was subsequently seen in the office by Dr. Garcia and wore a 24-hour Holter monitor and has been scheduled for a stress test. Yesterday while resting in his reclining chair he developed palpitations with significant dizziness, no syncope or near syncope, no nausea or vomiting and no diaphoresis. He did develop some discomfort in the left side of his chest following the palpitations that lasted several hours and resolved after sleeping through the night. Blood pressure has been somewhat elevated during this admission however he says at home and his primary care physician's office it has not been elevated. EKG on admission showed sinus rhythm. Labs show a normal CBC, potassium 3.9, BUN 18, creatinine 0.9 to and troponins negative 3. TSH, T3 and T4 were drawn during his ER visit on the and TSH was low at 0.442 with a free T4 of 1.03 and a free T3 4 0.1. Upon examination, rest patient is resting comfortably in bed. He's had no complaints of shortness of breath, edema, orthopnea or PND. His activity has been limited due to his back pain. Past Medical History Past Medical History: GERD/Reflux, Hyperlipidemia, Hypertension Additional Past Medical History / Comment(s): SEASONAL ALLERGIES, recent wore halter monitor History of Any Multi-Drug Resistant Organisms: None Reported Past Surgical History: Hernia Repair, Orthopedic Surgery, Tonsillectomy Additional Past Surgical History / Comment(s): LT Elbow TENDONITIS SURG. Fundoplication 03/05/2015. REPAIR KHALIF ING, UMB HERNIA REPAIR. NASAL LESION REMOVED Past Anesthesia/Blood Transfusion Reactions: No Reported Reaction Past Psychological History: No Psychological Hx Reported Smoking Status: Current some day smoker Past Alcohol Use History: None Reported Additional Past Alcohol Use History / Comment(s): Smokes RARE, Occasional Cigars Past Drug Use History: Marijuana Additional Drug Use History / Comment(s): OCC USE - Past Family History Father Family Medical History: Cancer Medications and Allergies Home Medications Medication Instructions Recorded Confirmed Type Celecoxib [CeleBREX] 200 mg PO BID 04/17/20 06/21/20 History HYDROcodone/APAP 7.5-325MG [[place] 1 tab PO BID 05/06/20 06/21/20 History 7.5-325] Gabapentin [Neurontin] 300 mg PO TID #90 cap 06/05/20 06/21/20 Rx Allergies Allergy/AdvReac Type Severity Reaction Status Date / Time codeine AdvReac Nausea & Verified 06/21/20 20:47 Vomiting Physical Exam Vitals: Vital Signs Temp Pulse Pulse Resp BP BP Pulse Ox 06/22/20 08:10 97.6 F 62 18 157/93 97 06/22/20 04:45 97.5 F L 67 16 138/82 96 06/21/20 23:06 98.1 F 67 16 143/90 96 06/21/20 23:00 67 16 06/21/20 21:56 97.5 F L 74 18 135/99 100 06/21/20 18:27 97.5 F L 97 18 182/105 100 Intake and Output 06/21/20 06/22/20 06/22/20 22:59 06:59 14:59 Other: Voiding Method Toilet # Voids 1 Weight 90.718 kg 90.718 kg PHYSICAL EXAMINATION: This is a 54-year-old male in no apparent distress at the time of my examination. VITAL SIGNS: Blood pressure 157/93, heart rate 62, respirations 18, temp 97.6F. Patient is 97 % on room air. HEENT: Head is atraumatic, normocephalic. Pupils are equal, round. Sclerae anicteric. Conjunctivae are clear. Mucous membranes of the mouth are moist. Neck is supple. There is no elevated jugular venous pressure. No carotid bruit is heard. CHEST EXAMINATION: Clear to auscultation bilaterally. No wheezes rales or rhon chi. Respirations even and nonlabored. HEART EXAMINATION: Heart regular, positive S1 and S2. No S3. No S4. No clicks, rubs or murmurs. ABDOMEN: Soft, nontender. Bowel sounds are heard. No organomegaly noted. EXTREMITIES: 2+ peripheral pulses with no evidence of peripheral edema and no calf tenderness noted. NEUROLOGIC EXAMINATION: Patient is awake, alert and oriented x3. Results 06/21/20 19:03 06/21/20 19:03 Cardiac Enzymes 06/21/20 06/21/20 06/21/20 Range/Units 19:03 19:03 19:03 WBC 7.2 (3.8-10.6) k/uL RBC 5.67 (4.30-5.90) m/uL Hgb 16.3 (13.0-17.5) gm/dL Hct 49.4 (39.0-53.0) % MCV 87.2 (80.0-100.0) fL MCH 28.7 (25.0-35.0) pg MCHC 32.9 (31.0-37.0) g/dL RDW 13.1 (11.5-15.5) % Plt Count 239 (150-450) k/uL MPV 7.3 Neutrophils % 62 % Lymphocytes % 26 % Monocytes % 5 % Eosinophils % 4 % Basophils % 1 % Neutrophils # 4.5 (1.3-7.7) k/uL Lymphocytes # 1.8 (1.0-4.8) k/uL Monocytes # 0.4 (0-1.0) k/uL Eosinophils # 0.3 (0-0.7) k/uL Basophils # 0.1 (0-0.2) k/uL Sodium 139 (137-145) mmol/L Potassium 3.9 (3.5-5.1) mmol/L Chloride 109 H (98-107) mmol/L Carbon Dioxide 22 (22-30) mmol/L Anion Gap 8 mmol/L BUN 18 (9-20) mg/dL Creatinine 0.92 (0.66-1.25) mg/dL Est GFR (CKD-EPI)AfAm >90 (>60 ml/min/1.73 sqM) Est GFR (CKD-EPI)NonAf >90 (>60 ml/min/1.73 sqM) Glucose 111 H (74-99) mg/dL Calcium 9.6 (8.4-10.2) mg/dL Ionized Calcium Breanna 5.3 (4.5-5.3) mg/dL Magnesium 1.9 (1.6-2.3) mg/dL Troponin I <0.012 (0.000-0.034) ng/mL 06/21/20 06/22/20 Range/Units 22:25 00:55 WBC (3.8-10.6) k/uL RBC (4.30-5.90) m/uL Hgb (13.0-17.5) gm/dL Hct (39.0-53.0) % MCV (80.0-100.0) fL MCH (25.0-35.0) pg MCHC (31.0-37.0) g/dL RDW (11.5-15.5) % Plt Count (150-450) k/uL MPV Neutrophils % % Lymphocytes % % Monocytes % % Eosinophils % % Basophils % % Neutrophils # (1.3-7.7) k/uL Lymphocytes # (1.0-4.8) k/uL Monocytes # (0-1.0) k/uL Eosinophils # (0-0.7) k/uL Basophils # (0-0.2) k/uL Sodium (137-145) mmol/L Potassium (3.5-5.1) mmol/L Chloride (98-107) mmol/L Carbon Dioxide (22-30) mmol/L Anion Gap mmol/L BUN (9-20) mg/dL Creatinine (0.66-1.25) mg/dL Est GFR (CKD-EPI)AfAm (>60 ml/min/1.73 sqM) Est GFR (CKD-EPI)NonAf (>60 ml/min/1.73 sqM) Glucose (74-99) mg/dL Calcium (8.4-10.2) mg/dL Ionized Calcium Breanna (4.5-5.3) mg/dL Magnesium (1.6-2.3) mg/dL Troponin I <0.012 <0.012 (0.000-0.034) ng/mL CBC 06/21/20 Range/Units 19:03 WBC 7.2 (3.8-10.6) k/uL RBC 5.67 (4.30-5.90) m/uL Hgb 16.3 (13.0-17.5) gm/dL Hct 49.4 (39.0-53.0) % Plt Count 239 (150-450) k/uL Comprehensive Metabolic Panel 06/21/20 Range/Units 19:03 Sodium 139 (137-145) mmol/L Potassium 3.9 (3.5-5.1) mmol/L Chloride 109 H (98-107) mmol/L Carbon Dioxide 22 (22-30) mmol/L BUN 18 (9-20) mg/dL Creatinine 0.92 (0.66-1.25) mg/dL Glucose 111 H (74-99) mg/dL Calcium 9.6 (8.4-10.2) mg/dL Current Medications Generic Name Dose Route Start Last Admin Trade Name Freq PRN Reason Stop Dose Admin Hydrocodone Bitart/Acetaminophen 1 each 06/22/20 00:35 06/22/20 01:44 Hydrocodone/Apap 7.5-325mg 1 Each Tab PO 1 each BID PRN Administration Pain Gabapentin 300 mg 06/22/20 00:45 06/22/20 01:44 Gabapentin 300 Mg Cap PO 300 mg TID AMANDA Administration Intake and Output 06/21/20 06/22/20 06/22/20 22:59 06:59 14:59 Other: Voiding Method Toilet # Voids 1 Weight 90.718 kg 90.718 kg 06/21/20 19:03 06/21/20 19:03 EKG Interpretations (text) Sinus rhythm Assessment and Plan Assessment: #1 recurrent palpitations with no documented arrhythmia #2 chest discomfort, acute coronary event has been ruled out, scheduled for outpatient stress testing #2 elevated blood pressure without diagnosis of hypertension #3 chronic back pain Plan: From cardiology's perspective we will obtain a 2-D echo with Doppler to assess cardiac structure and function. We will set the patient up for a 30 day event monitor since he did not have symptoms during the 24 hour monitoring period. If his echocardiogram does not show any significant abnormalities he may be discharged home today. He will monitor his blood pressure at home and address this at his follow-up appointment with his PCP or Dr. Garcia. He will undergo stress testing as an outpatient INSULATION WORKER FURNACE INSTALLER note has been reviewed, I agree with a documented findings and plan of care. Patient was seen and examined.
[2020-06-22 10:45] LABS: Cholesterol 249 mg/dL (<200); HDL Cholesterol 67 mg/dL (40-60); LDL Cholesterol,Calculated 164 mg/dL (0-99); Triglycerides 92 mg/dL (<150)
--- NOTE | 2020-06-22 12:01 | ECHOF ---
Referral Reason:palpitations, chest pain MEASUREMENTS -------- HEIGHT: 177.8 cm WEIGHT: 90.7 kg BP: IVSd: 1.2 cm (0.6 - 1.1) LVIDd: 4.5 cm (3.9 - 5.3) LVPWd: 1.3 cm (0.6 - 1.1) EDV(Teich): 93 ml IVSs: 1.7 cm LVIDs: 2.5 cm LVPWs: 2.2 cm %IVS Thck: 42 % ESV(Teich): 21 ml EF(Teich): 77 % %FS: 46 % SV(Teich): 72 ml IVC: 15.15 mm LALs A4C: 5.2 cm LAAs A4C: 14.9 cm LAESV A-L A4C: 37 ml LAESV MOD A4C: 33 ml LALs A2C: 4.6 cm LAAs A2C: 17.8 cm LAESV A-L A2C: 59 ml LAESV MOD A2C: 55 ml LAESV(A-L): 50 ml LAESV Index (A-L): 23.72 ml/m Ao Diam: 3.3 cm (2.0 - 3.7) LA Diam: 2.7 cm (2.7 - 3.8) AV Cusp: 1.8 cm (1.5 - 2.6) EPSS: 0.6 cm MV E Renaldo: 0.59 m/s MV DecT: 161 ms MV Dec Gates: 3.7 m/s MV A Renaldo: 0.52 m/s MV E/A Ratio: 1.14 MV PHT: 47 ms MR Vmax: 2.38 m/s MR maxP.65 mmHg AV Vmax: 1.05 m/s AV maxP.42 mmHg TR Vmax: 2.08 m/s TR maxP.27 mmHg RAP: 5.00 mmHg RVSP: 22.27 mmHg MV EF SLOPE: 114.35 mm/s (70 - 150) MV EXCURSION: 18.05 mm (> 18.000) FINDINGS -------- This was a technically good study. The left ventricular size is normal. There is mild concentric left ventricular hypertrophy. Overa ll left ventricular systolic function is normal with, an EF between 55 - 60 %. The diastolic fillin g pattern is normal for the age of the patient 6.72. The right ventricle is normal in size. The left atrial size is normal. Normal LA size by volume 22+/-6 ml/m2. The right atrial size is normal. The aortic valve is trileaflet and appears structurally normal. The mitral valve is normal. Mild mitral regurgitation is present. The tricuspid valve appears structurally normal. Mild tricuspid regurgitation present. Right vent ricular systolic pressure is normal at < 35 mmHg. There is no pulmonic regurgitation present. The aortic root size is normal. Normal inferior vena cava with normal inspiratory collapse consistent with estimated right atrial pre ssure of 5 mmHg. There is no pericardial effusion. CONCLUSIONS -------- 1. The left ventricular size is normal. 2. There is mild concentric left ventricular hypertrophy. 3. Overall left ventricular systolic function is normal with, an EF between 55 - 60 %. 4. The diastolic filling pattern is normal for the age of the patient 6.72 5. Mild mitral regurgitation is present. 6. Mild tricuspid regurgitation present. 7. There is no pericardial effusion. CREW TRUCK DRIVER: Khushi Avalos RDCS
--- NOTE | 2020-06-22 14:31 | P.HPIM ---
History of Present Illness Please consider this note has combined H and P and Discharge summary. Diagnoses Palpitation without arrhythmia per cardiology team evaluation patient can go home Hypertension Hyperlipidemia History of GERD Chronic low back pain status post surgery This is a pleasant 54 years old male with past medical history of hyperlipidemia , hypertension, GERD, chronic low back pain status post surgical intervention by orthopedic spine surgeon on pain medication. Presents because of recurrent palpitation, he was recently presents with similar symptoms and near syncope where he was evaluated and then the [place] guest service supervisor Dr. Garcia was scheduled him for outpatient stress test however yesterday while he was in his recliner he developed palpitation with lightheadedness associated with mild chest pain that lasted for a few hours area with no associated dyspnea or nausea vomiting. Patient has been evaluated by guest service supervisor service who checked his echocardiogram and showing left ventricular size is normal, mild LVH, ejection fraction 55-60% with mild valvular heart disease Because of this guest service supervisor cleared the patient for discharge and recommended the patient to follow-up with his guest service supervisor Dr. Garcia for event monitor as well as stress test as an outpatient Patient symptoms improved and his back to his baseline and he wants to go home Problems and management plan were discussed with the patient and he verbalized understanding and acceptance Patient was found stable and can be discharged home however he needs follow-up as an outpatient. Patient was instructed to follow up with PCP Dr. Feldman within one week and patient agrees. Patient also was instructed to follow up with his guest service supervisor Dr. Garcia for event monitor and stress test as an outpatient and he agrees to follow up with his appointment on 06/28. Patient also call Wednesday to confirm appointment date and time, and if it is not there he will call to make an appointment in 1 week as he told me Review of systems CONSTITUTIONAL: No fever, no malaise, no fatigue. HEENT: No recent visual problems or hearing problems. Denied any sore throat. CARDIOVASCULAR: No orthopnea, PND, no palpitations, no syncope. PULMONARY: No shortness of breath, no cough, no hemoptysis. GASTROINTESTINAL: No diarrhea, no nausea, no vomiting, no abdominal pain. Normoactive bowel sounds. NEUROLOGICAL: No headaches, no weakness, no numbness. HEMATOLOGICAL: Denies any bleeding or petechiae. GENITOURINARY: Denies any burning micturition, frequency, or urgency. MUSCULOSKELETAL/RHEUMATOLOGICAL: Denies any joint pain, swelling, or any muscle pain. ENDOCRINE: Denies any polyuria or polydipsia. Gen: patient is a AAOx3, no distress CVS: S1-S2, RRR, no murmur Lungs: B/L CTA, no wheezing Abdomen: soft, no distention, no tenderness, positive bowel sounds Extremity: no leg edema or induration Time spent more than 35 minutes Past Medical History Past Medical History: GERD/Reflux, Hyperlipidemia, Hypertension Additional Past Medical History / Comment(s): SEASONAL ALLERGIES, recent wore halter monitor History of Any Multi-Drug Resistant Organisms: None Reported Past Surgical History: Hernia Repair, Orthopedic Surgery, Tonsillectomy Additional Past Surgical History / Comment(s): LT Elbow TENDONITIS SURG. F undoplication 03/05/2015. REPAIR KHALIF ING, UMB HERNIA REPAIR. NASAL LESION REMOVED Past Anesthesia/Blood Transfusion Reactions: No Reported Reaction Past Psychological History: No Psychological Hx Reported Smoking Status: Current some day smoker Past Alcohol Use History: None Reported Additional Past Alcohol Use History / Comment(s): Smokes RARE, Occasional Cigars Past Drug Use History: Marijuana Additional Drug Use History / Comment(s): OCC USE - Past Family History Father Family Medical History: Cancer Medications and Allergies Home Medications Medication Instructions Recorded Confirmed Type Celecoxib [CeleBREX] 200 mg PO BID 04/17/20 06/21/20 History HYDROcodone/APAP 7.5-325MG [[place] 1 tab PO BID 05/06/20 06/21/20 History 7.5-325] Gabapentin [Neurontin] 300 mg PO TID #90 cap 06/05/20 06/21/20 Rx Allergies Allergy/AdvReac Type Severity Reaction Status Date / Time codeine AdvReac Nausea & Verified 06/21/20 20:47 Vomiting Physical Exam Vitals: Vital Signs Temp Pulse Pulse Resp BP BP Pulse Ox 06/22/20 09:00 62 18 06/22/20 08:10 97.6 F 62 18 157/93 97 06/22/20 04:45 97.5 F L 67 16 138/82 96 06/21/20 23:06 98.1 F 67 16 143/90 96 06/21/20 23:00 67 16 06/21/20 21:56 97.5 F L 74 18 135/99 100 11/27/20 18:27 97.5 F L 97 18 182/105 100 Intake and Output 06/21/20 06/22/20 06/22/20 22:59 06:59 14:59 Other: Voiding Method Toilet Toilet # Voids 1 Weight 90.718 kg 90.718 kg Results CBC & Chem 7: 06/21/20 19:03 06/21/20 19:03 Labs: Abnormal Lab Results - Last 24 Hours (Table) 06/21/20 06/22/20 Range/Units 19:03 09:49 Chloride 109 H (98-107) mmol/L Glucose 111 H (74-99) mg/dL Cholesterol 249 H (<200) mg/dL LDL Cholesterol, Calc 164 H (0-99) mg/dL HDL Cholesterol 67 H (40-60) mg/dL Thrombosis Risk Factor Assmnt - Choose All That Apply Any of the Below Risk Factors Present?: Yes Each Factor Represents 1 point: Age 41-60 years, Obesity (BMI >25) Thrombosis Risk Factor Assessment Total Risk Factor Score: 2 Thrombosis Risk Factor Assessment Level: Low Risk
[2020-06-22 15:14] VITALS: BP 145/84
== END 2020-06-22 18:13 | disposition home or self-care (01) ==
LOC: EC 18:23 → 1SOBS 20:09
PROVIDERS: ADMIT Internal Medicine; ATTEND Internal Medicine
DX: R00.2 Palpitations (principal); R42 Dizziness and giddiness; R07.89 Other chest pain; E78.5 Hyperlipidemia, unspecified; I10 Essential (primary) hypertension; K21.9 Gastro-esophageal reflux disease without esophagitis; J30.2 Other seasonal allergic rhinitis; F17.290 Nicotine dependence, other tobacco product, uncomplicated; F12.90 Cannabis use, unspecified, uncomplicated; M54.5 Low back pain; G89.29 Other chronic pain; E66.9 Obesity, unspecified; Z68.29 Body mass index [BMI] 29.0-29.9, adult; Z79.1 Long term (current) use of non-steroidal anti-inflammatories (NSAID); Z79.891 Long term (current) use of opiate analgesic; Z79.899 Other long term (current) drug therapy; Z88.5 Allergy status to narcotic agent; Z98.890 Other specified postprocedural states; Z80.9 Family history of malignant neoplasm, unspecified
CPT/HCPCS: 93005 ×2; 99285; 36415; 93306; 80061; 80048; 82330; 83735; 84484 ×2; 85025; G0378 ×2

== ENCOUNTER → 2020-07-10 | Outpatient (CLI) | payer BC ==
[2020-07-10 10:01] VITALS: BP 146/95; PULSE 72; RESP 16; TEMP 97.6
--- NOTE | 2020-07-10 10:25 | P.PN ---
Subjective Progress Note Date: 07/10/20 This is a follow-up visit for this 54 years old male with a history of severe low back pain with radiation to the left lower extremity ,he is diagnosed with lumbar bulging disc disease, and lumbar radiculopathy, and lumbar spondylosis with lumbar facet arthropathy, previously we have done, left-sided hess sforaminal epidural steroid injection at L4 5 levels he reported he had 0 benefit from the injection, he continued to have severe low back pain and he reported that the numbness and tingling sensation in his left lower extremity improved after he started on Neurontin 300 mg 3 times a day, denies any side effect of the medication he denies any excessive drowsiness and sleepiness, denies any fever or night sweats, recently he was evaluated by a spine surgeon Dr. Anderson, and he did not recommend any surgical interventions Objective - Vital Signs Vital signs: Vital Signs Temp 97.6 F 07/10/20 09:57 Pulse 72 07/10/20 09:57 Resp 16 07/10/20 09:57 BP 146/95 07/10/20 09:57 Pulse Ox 96 07/10/20 09:57 - Exam Physical Examinations : -Constitutiona : Cooperative , not in acute distress . -HEENT : nech : supple , no Lymphadenopathy , normal thyroid size . : eyes : no ptosis , no icterus, no photophobia . - neurologic : Cranial nerve II to XII intact , no focal neurological deffecit . -psychatric : alert , oriented X 3 , appropriate affect , intact judgment and insight . -Lymphatic : no Lymphadenopathy . - musculoskeltal : Lumber spine moter stegnth lower extremities ,thigh and legs 5/5 Right side , 5/5 Left side deep tendon reflexes : normal Knee Jerk , normal ankle Jerk lumber facet Loading Test = negative bilaterally Range of motion of the lumbar spine Flexion 30 degrees, extension 10 degrees strait leg raising test = negative bilaterally Fabere test= positive Right , and positive LT . tenderness over the Sacroiliac joint on the Right , and Left sides Assessment and Plan Plan: Assessment and plan= chronic low back pain secondary to lumbar degenerative disc disease , lumbar spondylosis with lumbar facet arthropathy . Lumbar radiculopathy chronic and current use of high-risk medication (opioids) Patient denies any side effects of the current pain medication and the current treatment/medication helping the patient to do activity of daily living , Diagnoses, prognosis, treatment options, including but not limited to physical therapy, medication management, interventional therapies, and surgery, were discussed with the patient All the questions answered The narcotic consent was signed and patient agreed and understood the side effects and complications of opioid treatment. Patient signed the narcotic agreement, and was orally counseled, not to overuse, not to abuse, not to Divert , not tp sell pain medication, and to take it as prescribed only, Patient was counseled not to drive or operate heavy equipment while using narcotic medication, and advised not to use alcohol or any Illicit drugs while using the narcotis. understanding that lack of compliance with any of the above instructions, will likely to cause discharge from, the pain service, not to renew his narcotic prescriptions MAPS Reviwed and it was apropriate . Medication managements= patient will be given prescription refills for Neurontin 300 mg 3 times a day dispense 90 with 1 refill Interventions= patient will be good candidate to have diagnostic medial branch block lumbar area L3, L 4, L5 bilaterally ( to target the facet joint at L4 5 and L5-S1 ) - PQRS measures = - Patient's medications are documented in the chart. -Tobacco use is negative and counseling.Given. -Patient's has not received pneumococcal vaccine. -Advanced care planning discussed, patient not eligible. -Opiate contract signed. -Pain positive and follow-up visit/procedure is scheduled. -Patient's blood pressure measured [146/95 ] , and documented in the record ,and patient will follow up with the primary care. -Patient's weight was measured and body mass index [ 29.5] above the normal limits and counseling was done. and patient instructed to follow-up with the primary care physician. -Patient was not identified as an unhealthy alcohol user , Time with Patient: Less than 30
== END | disposition home or self-care (01) ==
LOC: PNWHC3 09:39
PROVIDERS: ATTEND Specialist
DX: M51.16 Intervertebral disc disorders with radiculopathy, lumbar region (principal); M47.26 Other spondylosis with radiculopathy, lumbar region; G89.29 Other chronic pain; Z79.891 Long term (current) use of opiate analgesic
CPT/HCPCS: 99211

== ENCOUNTER 2020-08-08 09:29 | Day surgery (SDC) | payer BC, OTHER ==
[2020-08-02 16:34] VITALS: BMI 29.5
[2020-08-08 09:43] VITALS: TEMP 97.8
[2020-08-08] MEDS ORDERED: fentaNYL (PF) 50 MCG/ML 2 ML AMP ONE (10:05)
[2020-08-08] MEDS ORDERED: methylPREDNISolone ACETATE 40 MG/ML 1 ML VIAL ONE (10:05)
[2020-08-08] MEDS ORDERED: MIDAZOLAM 2 MG/2 ML VIAL ONE (10:05)
[2020-08-08] MEDS ORDERED: ROPIVACAINE 5MG/ML 20ML VIAL ONE (10:05)
--- NOTE | 2020-08-08 10:22 | P.PCN ---
Date of Procedure: 08/08/20 Procedure(s) Performed: PREOPERATIVE DIAGNOSIS : 1- Lumbar spondylosis with Facet Arthropathy without myelopathy . POSTOPERATIVE DIAGNOSIS: 1- Lumbar spondylosis with Facet Arthropathy without myelopathy . PROCEDURE: Diagnostic bilateral L3 , L4 , and L5 medial branch block under fluoroscopy guidance(fluoroscopy images available in the radiology Department ) ( To target the facet joint between L4-5 , and L5-S1 ) ANESTHESIA:, moderate sedation with intravenous Versed 2 mg and Fentanyl 50 mcg. EBL: Minimal COMPLICATION: None PROCEDURE INDICATION: Chronic low back pain secondary to Facet arthropathy unresponsive to conservative treatment. PROCEDURE DESCRIPTION: the patient was seen and identified in the preop holding area , risks and benefits and possible complications of the procedure and alternative were discussed with the patient, and the patient agreed to proceed with the procedure and signed the consent and vital signs monitored during the procedure and fluoroscopy was used to maximize the benefit and accuracy of the needle placement, and sedation was given to decrease patient anxiety, patient was taken to the procedure room and placed in prone position vital signs monitored in the back prepped with chlorhexidine X3 then under strict sterile technique using a right oblique fluoroscopy ,the junction of the transverse process and the superior articulating process of the right L3 , L4 , and L5 vertebra which corresponding to the fluoroscopy image of the eye of the Deondre dog on the block side for the medial branches and subsequently , after local infiltration of skin and subcu tissuies with Ropivacaine 0.5 % , one mL at each level ,then 22-gauge Quincke-type needles , 3 needle was used , each one of them placed at the junction of the base of the transverse process and the superior articular process at the appropriate level, and the needle was advanced until the periosteum contacted, needle placement confirmed with AP oblique and lateral view and after appropriate needle placement confirmed, and after negative aspiration for heme and CSF and there was no paresthesia 1-1/2 mL of Ropivacaine 0.5% mixed with 20 mg Depo-Medrol , then half mL injected at each level after negative aspiration the needle subsequently removed and the same procedure repeated for the left side at left side at L3 , L4 and L5 levels. At the end of the procedure and the needles removed and a bandage applied after the skin was cleaned the cleaning solution patient taken to recovery room in stable condition and monitors in the recovery room for 20-30 minutes and discharged home in stable condition after discharge criteria met and patient will follow up with the pain clinic in 2-4 weeks
[2020-08-08] MEDS ORDERED: IV FLUID CONTINUATION 1,000 ML IV ONE (10:31)
--- NOTE | 2020-08-08 10:35 | FL ---
EXAMINATION TYPE: FL guided pain mgmt statistic DATE OF EXAM: 08/08/2020 FLUOROSCOPY Fluoroscopy time of 11 seconds was used during bilateral lumbar facet injections. 4 image/s document /s the procedure.
[2020-08-08 10:39] VITALS: RESP 16
[2020-08-08 10:47] VITALS: BP 120/83; PULSE 56
== END 2020-08-08 10:58 | disposition home or self-care (01) ==
LOC: ORPAIN 09:29
PROVIDERS: ATTEND Specialist
DX: G89.29 Other chronic pain (principal); M47.816 Spondylosis without myelopathy or radiculopathy, lumbar region; Z88.5 Allergy status to narcotic agent
CPT/HCPCS: 64493; 64494; J2250; J1030; J3010; J2795; 99152

== ENCOUNTER 2020-08-30 11:04 | Day surgery (SDC) | payer BC, OTHER ==
[2020-08-29 09:23] VITALS: BMI 29.5
[~2020-08-30 11:04] MED LIST changes: +MIDAZOLAM 2 MG/2 ML VIAL IV PRN; +fentaNYL (PF) 50 MCG/ML 2 ML AMP IV PRN
[2020-08-30 11:20] VITALS: RESP 16; TEMP 97.3
[2020-08-30] MEDS ORDERED: LIDOCAINE 1% (10MG/ML) FOR IV START INTRADERMA ONE (11:24)
[2020-08-30] MEDS ORDERED: MIDAZOLAM 2 MG/2 ML VIAL ONE (12:25)
[2020-08-30] MEDS ORDERED: fentaNYL (PF) 50 MCG/ML 2 ML AMP ONE (12:25)
[2020-08-30] MEDS ORDERED: ROPIVACAINE 5MG/ML 20ML VIAL ONE (12:25)
[2020-08-30] MEDS ORDERED: methylPREDNISolone ACETATE 40 MG/ML 1 ML VIAL ONE (12:25)
--- NOTE | 2020-08-30 12:41 | P.PCN ---
Date of Procedure: 08/30/20 Procedure(s) Performed: PREOPERATIVE DIAGNOSIS : 1- Lumbar spondylosis with Facet Arthropathy without myelopathy . POSTOPERATIVE DIAGNOSIS: 1- Lumbar spondylosis with Facet Arthropathy without myelopathy . PROCEDURE: Diagnostic bilateral L3 , L4 , and L5 medial branch block under fluoroscopy guidance(fluoroscopy images available in the radiology Department ) ( To target the facet joint between L4-5 , and L5-S1 ) # 2nd . ANESTHESIA:, Monitored anesthesia care by anesthesia department.. EBL: Minimal COMPLICATION: None PROCEDURE INDICATION: Chronic low back pain secondary to Facet arthropathy unresponsive to conservative treatment. PROCEDURE DESCRIPTION: the patient was seen and identified in the preop holding area , risks and benefits and possible complications of the procedure and alternative were discussed with the patient, and the patient agreed to proceed with the procedure and signed the consent and vital signs monitored during the procedure and fluoroscopy was used to maximize the benefit and acc uracy of the needle placement, and sedation was given to decrease patient anxiety, patient was taken to the procedure room and placed in prone position vital signs monitored in the back prepped with chlorhexidine X3 then under strict sterile technique using a right oblique fluoroscopy ,the junction of the transverse process and the superior articulating process of the right L3 , L4 , and L5 vertebra which corresponding to the fluoroscopy image of the eye of the Deondre dog on the block side for the medial branches and subsequently , after local infiltration of skin and subcu tissuies with Ropivacaine 0.5 % , one mL at each level ,then 22-gauge Quincke-type needles , 3 needle was used , each one of them placed at the junction of the base of the transverse process and the superior articular process at the appropriate level, and the needle was advanced until the periosteum contacted, needle placement confirmed with AP oblique and lateral view and after appropriate needle placement confirmed, and after negative aspiration for heme and CSF and there was no paresthesia 1-1/2 mL of Ropivacaine 0.5% mixed with 20 mg Depo-Medrol , then half mL injected at each level after negative aspiration the needle subsequently removed and the same procedure repeated for the left side at left side at L3 , L4 and L5 levels. At the end of the procedure and the needles removed and a bandage applied after the skin was cleaned the cleaning solution patient taken to recovery room in stable condition and monitors in the recovery room for 20-30 minutes and discharged home in stable condition after discharge criteria met and patient will follow up with the pain clinic in 2-4 weeks
[2020-08-30] MEDS ORDERED: IV FLUID CONTINUATION 100 ML IV ONE (12:47)
--- NOTE | 2020-08-30 12:53 | FL ---
EXAMINATION TYPE: FL guided pain mgmt statistic DATE OF EXAM: 08/30/2020 CLINICAL HISTORY: Low back pain. TECHNIQUE: Fluoroscopy. COMPARISON: None. FINDINGS: Fluoroscopic guidance was provided during pain relief procedure performed by Dr. Gatica . A total of 9 seconds of fluoroscopic time was utilized during the procedure and 3 spot images are acquired. Images acquired shows needle localization at several levels in the lumbar spine. IMPRESSION: As Above.
[2020-08-30 13:11] VITALS: BP 133/84; PULSE 68
== END 2020-08-30 13:22 | disposition home or self-care (01) ==
LOC: ORPAIN 11:04
PROVIDERS: ATTEND Specialist
DX: G89.29 Other chronic pain (principal); M47.816 Spondylosis without myelopathy or radiculopathy, lumbar region; I10 Essential (primary) hypertension; E78.5 Hyperlipidemia, unspecified; K21.9 Gastro-esophageal reflux disease without esophagitis; Z88.5 Allergy status to narcotic agent; Z79.1 Long term (current) use of non-steroidal anti-inflammatories (NSAID); Z79.891 Long term (current) use of opiate analgesic; Z79.899 Other long term (current) drug therapy
CPT/HCPCS: 64493; 64494; J2250; J1030; J3010; J2795

== ENCOUNTER → 2020-09-16 | Outpatient (CLI) | payer BC ==
[2020-09-16 10:38] VITALS: BP 160/104; PULSE 75; RESP 18; TEMP 97.5
--- NOTE | 2020-09-16 10:42 | P.PN ---
Subjective Progress Note Date: 09/16/20 This is a 55-year-old gentleman with history of chronic lower back pain status post 2 diagnostic lumbar medial branch block. The first medial branch block resulted in 100% of pain relief which lasted for 2 hours and started immediately after the procedure. The second medial branch block also resulted in 100% of pain relief which started immediately after the procedure and lasted for 6 hours. Patient denies new-onset weakness, bowel/bladder incontinence, or any other signs or symptoms of cauda equina syndrome. There are no signs of acute intoxication, and no indications of medication diversion or overuse. In addition to above, 13-point review of systems is also negative for chest pain, shortness of breath, changes in vision, changes in hearing, new onset weakness, abdominal pain, diarrhea, extreme fatigue, malaise, fever, skin changes, homicidal or suicidal ideation, or bowel or bladder incontinence. Vital Signs: Reviewed in EMR Gen: AAOx3, NAD HEENT: PERRLA,hearing grossly normal Pulm: resp unlabored Neck: supple, trachea midline Neuro exam of the lower extremities: Within normal limits for muscle strength bilaterally Straight leg raising test: Donnie's test: Range of motion of the lumbar spine: Facet loading test: Tenderness in the paravertebral musculature: Neuro: CN II-XII grossly intact, Imaging: Reviewed in EMR/chart Assessment: Lumbar spondylosis without myelopathy Lumbar DDD Plan: 1. Explanation: Opioid and psychological risk scores were reviewed. Diagnoses, prognoses, and multiple treatment options including but not limited to physical therapy, interventional therapies, adjuvant medical therapies, narcotic m edication therapies, and surgery were discussed with the patient and all questions were answered to the patient's satisfaction. 2. Opioid agreement: Signed with the patient and the patient is warned not to use opioids while driving or before driving and not to combine opioids with benzodiazepines or alcohol. 3. Counseling: The patient was counseled extensively on SMOKING CESSATION, BODY MASS INDEX, EXERCISE. Specifically, the patient was instructed regarding the importance of smoking cessation, obesity, and exercise in the context of both chronic pain and overall health. 4. Procedures: I think the patient would be a good candidate for lumbar medial branch RFA I will do both sides under fluoroscopic guidance for levels L4 5 and L5-S1 5. Consultations: None 6. Investigations: None 7. Medications: None 8. Disposition: We'll proceed with the above-mentioned procedure 9. Maps were reviewed and were appropriate. Objective - Vital Signs Vital signs: Vital Signs Temp 97.5 F L 09/16/20 10:33 Pulse 75 09/16/20 10:33 Resp 18 09/16/20 10:33 BP 160/104 09/16/20 10:33 Pulse Ox 97 09/16/20 10:33
== END | disposition home or self-care (01) ==
LOC: PNWHC3 10:26
PROVIDERS: ATTEND Anesthesiology
DX: M51.36 Other intervertebral disc degeneration, lumbar region (principal); M47.816 Spondylosis without myelopathy or radiculopathy, lumbar region
CPT/HCPCS: 99211

== ENCOUNTER 2020-10-04 11:17 | Day surgery (SDC) | payer BC ==
[2020-10-02 09:16] VITALS: BMI 30.5
[~2020-10-04 11:17] MED LIST changes: -MIDAZOLAM 2 MG/2 ML VIAL IV PRN; -fentaNYL (PF) 50 MCG/ML 2 ML AMP IV PRN
[2020-10-04 11:35] VITALS: RESP 16; TEMP 98.1
[2020-10-04] MEDS ORDERED: LIDOCAINE 1% (10MG/ML) FOR IV START INTRADERMA ONE (11:50)
[2020-10-04] MEDS ORDERED: MIDAZOLAM 2 MG/2 ML VIAL ONE (12:10)
[2020-10-04] MEDS ORDERED: fentaNYL (PF) 50 MCG/ML 2 ML AMP ONE (12:10)
[2020-10-04] MEDS ORDERED: methylPREDNISolone ACETATE 40 MG/ML 1 ML VIAL ONE (12:10)
[2020-10-04] MEDS ORDERED: ROPIVACAINE 5MG/ML 20ML VIAL ONE (12:10)
--- NOTE | 2020-10-04 12:41 | P.PCN ---
Date of Procedure: 10/04/20 Procedure(s) Performed: PREOPERATIVE DIAGNOSIS: 1-Lumbar Spondylosis with Facet Arthropathy without myelopathy. POSTOPERATIVE DIAGNOSIS: 1- Lumbar Spondylosis with Facet Arthropathy without myelopathy. PROCEDURES : Bilateral Radiofrequency thermocoagulation, L3 , L4 , and L5 medial branch, with fluoroscopic guidance (fluoroscopy images available in the radiology department) ( to denervate the facet joint at L4-5 ,and L5-S1 levels ). ANESTHESIA: Monitored anesthesia care as per anesthesia department . EBL: Minimal PROCEDURE INDICATION: The patient with low back pain secondary to lumbar facet arthropathy who had more than 50% relief of her pain with previous diagnostic lumbar medial branch block with bupivacaine. PROCEDURE DESCRIPTION / TECHNIQUE: The patient was seen and identified in the preoperative area. Risks, benefits, complications, including but not limited to risk of infection ,bleeding , allergic reactions to the medications and no complete pain releife , and alternatives were discussed with the patient, the patient agreed to proceed with the procedure and signed the consent. IV was started. Vital signs remained stable throughout the procedure. Patient was taken to the OR and time out was completed. The patient was placed in the prone position on the procedure table. The lumber area was prepped and draped in the usual sterile fashion. . Vital signs were closely monitored during the procedure .IV sedation was used during the procedure to decrease patients anxiety. Using AP and then oblique fluoroscopy, the ``eye of the Deondre dog corresponding to the connection between the superior and transverse articular processes of right L3, L4, and L5 were identified, marked, and localized with 1% lidocaine. Subsequently, a [id number] (VENOM ) radiofrequency cannula with a 10-mm active tip was advanced guided by fluoroscopy to each of the``eyes of the Deondre dog at right L3, L4, and L5. Each site then underwent sensory testing at 50 Hz and 0 to 1 volt and motor testing at 2.5 Hz and 0 to 3 volt with local stimulation, but no radicular symptoms down the legs. Thereafter each sites underwent radiofrequency thermocoagulation at 80 degrees celsius for 90 seconds after injecting 0.5 ml of PF Ropivacaine 1ml, then after the thermocoagulation done , 1 ml of the block solution containing Depo-Medrol 20 mg and 3 ml of Ropivacaine 0.5% was injected at the right L3 , L4 , and L5 , levels after negative aspiration of CSF and blood and with no paresthesias. Cannulas were retracted while injecting lidocaine 1% until the needle is out. The same procedure was repeated at the level of Left L3, L4, and L5 levels. At the end of the procedure, the skin was cleansed and bandages were applied. COMPLICATIONS: No acute complications. DISPOSITION / PLANS: The patient was placed in a supine position and transferred to the recovery area in a stable condition for observation and was discharged from the recovery room after meeting discharge criteria. Home discharge instructions given to the patient by the staff. The patient was reexamined prior to discharge. The patient will schedule a follow up in the clinic in 2-4 weeks.
[2020-10-04] MEDS ORDERED: IV FLUID CONTINUATION 600 ML IV ONE (12:48)
--- NOTE | 2020-10-04 13:00 | FL ---
EXAMINATION TYPE: FL guided pain mgmt statistic DATE OF EXAM: 10/04/2020 CLINICAL HISTORY: Low back pain. TECHNIQUE: Fluoroscopy. COMPARISON: None. FINDINGS: Fluoroscopic guidance was provided during pain relief procedure performed by Dr. Gatica . A total of about 25 seconds of fluoroscopic time was utilized during the procedure and 6 spot imag es are acquired. Images acquired shows needle localization at multiple levels in the lumbar spine. IMPRESSION: As Above.
[2020-10-04 13:10] VITALS: BP 132/87; PULSE 60
== END 2020-10-04 13:12 | disposition home or self-care (01) ==
LOC: ORPAIN 11:17
PROVIDERS: ATTEND Specialist
DX: M47.816 Spondylosis without myelopathy or radiculopathy, lumbar region (principal); I10 Essential (primary) hypertension; E78.5 Hyperlipidemia, unspecified; F17.200 Nicotine dependence, unspecified, uncomplicated; K21.9 Gastro-esophageal reflux disease without esophagitis; Z98.890 Other specified postprocedural states; Z88.5 Allergy status to narcotic agent; Z79.891 Long term (current) use of opiate analgesic; Z79.899 Other long term (current) drug therapy; Z79.1 Long term (current) use of non-steroidal anti-inflammatories (NSAID); Z90.89 Acquired absence of other organs
CPT/HCPCS: 64635; 64636; J2250; J1030; J3010; J2795

== ENCOUNTER → 2020-10-28 | Outpatient (CLI) | payer BC ==
[2020-10-28 10:02] VITALS: BP 153/93; PULSE 76; RESP 16; TEMP 97.7
--- NOTE | 2020-10-28 10:22 | P.PN ---
Subjective Progress Note Date: 10/28/20 This is a follow-up visit for this 55 years old male with a history of severe low back pain with radiation to the left lower extremity ,he is diagnosed with lumbar bulging disc disease, and lumbar radiculopathy, and lumbar spondylosis with lumbar facet arthropathy, recently we did RFA of the medial branch lumbar area, currently is complaining of severe low back pain localized in the low back area on the left side with radiation to the left buttock, he denies any motor or sensory deficits she denies any fever or night sweats, and he reported that the pain is constant and severe interfere with the quality of life, and it's mainly on the left buttock area., Continue to use his pain medication without any significant benefit(within prescription refills from his primary care ) Neurontin 300 mg 3 times a day [place] 7.5/325 twice a day and Celebrex 200 mg twice a day, he denies any side effect of the medication Objective - Vital Signs Vital signs: Vital Signs Temp 97.7 F 10/28/20 09:59 Pulse 76 10/28/20 09:59 Resp 16 10/28/20 09:59 BP 153/93 10/28/20 09:59 Pulse Ox 96 10/28/20 09:59 - Exam Physical Examinations : -Constitutiona : Cooperative , not in acute distress . -HEENT : nech : supple , no Lymphadenopathy , normal thyroid size . : eyes : no ptosis , no icterus, no photophobia . - neurologic : Cranial nerve II to XII intact , no focal neurological deffecit . -psychatric : alert , oriented X 3 , appropriate affect , intact judgment and insight . -Lymphatic : no Lymphadenopathy . - musculoskeltal : Lumber spine moter stegnth lower extremities ,thigh and legs 5/5 Right side , 5/5 Left side deep tendon reflexes : normal Knee Jerk , normal ankle Jerk lumber facet Loading Test = negative bilaterally Range of motion of the lumbar spine Flexion 30 degrees, extension 10 degrees strait leg raising test = negative bilaterally Fabere test= positive Right , and positive LT . Sever tenderness over the Sacroiliac joint on the Left sides Gaenslen test= negative right ,and positive left . Seated flexion test= negative right ,and positive Left Sacroiliac compression test= positive left side Assessment and Plan Plan: Assessment and plan=1-lumbar spondylosis with lumbar facet arthropathy without myelopathy Status post RFA of the medial branch lumbar area. 2-left sacroiliitis Patient could benefit from left sacroiliac joint steroid injections under fluoroscopy guidance Patient should continue to use his current medication Neurontin, [place], Celebrex, as prescribed by his primary care - PQRS measures = - Patient's medications are documented in the chart. -Tobacco use is negative and counseling.Given. -Patient's has not received pneumococcal vaccine. -Advanced care planning discussed, patient not eligible. -Opiate contract not signed. -Pain positive and follow-up visit/procedure is scheduled. -Patient's blood pressure measured [ and 53/93 ] , and documented in the record ,and patient will follow up with the primary care. -Patient's weight was measured and body mass index [ 30.6 ] above the normal limits and counseling was done. and patient instructed to follow-up with the primary care physician. -Patient was not identified as an unhealthy alcohol user Time with Patient: Less than 30
== END ==
LOC: PNWHC3 09:48
PROVIDERS: ATTEND Specialist
DX: M47.816 Spondylosis without myelopathy or radiculopathy, lumbar region (principal); M46.1 Sacroiliitis, not elsewhere classified; Z98.890 Other specified postprocedural states
CPT/HCPCS: 99211

== ENCOUNTER 2020-11-14 12:02 | Day surgery (SDC) | payer BC ==
[2020-11-12 10:01] VITALS: BMI 30.5
[2020-11-14 12:28] VITALS: RESP 16; TEMP 97.1
[2020-11-14] MEDS ORDERED: LACTATED RINGERS 1,000 ML IV ONE (12:28)
[2020-11-14] MEDS ORDERED: ROPIVACAINE 5MG/ML 20ML VIAL ONE (12:41)
[2020-11-14] MEDS ORDERED: methylPREDNISolone ACETATE 40 MG/ML 1 ML VIAL ONE (12:41)
[2020-11-14] MEDS ORDERED: MIDAZOLAM 2 MG/2 ML VIAL ONE (12:41)
[2020-11-14] MEDS ORDERED: fentaNYL (PF) 50 MCG/ML 2 ML AMP ONE (12:41)
--- NOTE | 2020-11-14 12:52 | P.PCN ---
Date of Procedure: 11/14/20 Procedure(s) Performed: Procedure= Left sacroiliac joints steroid injection under fluoroscopy guidance (fluoroscopy image stored on file in the radiology Department ) Preoperative diagnosis= 1- Left sacroiliitis 2-lumbar spondylosis with facet arthropathy Postoperative diagnosis=Same as preop Diagnosis . Complication = none Condition= stable Anesthesia= moderate sedation with intravenous Versed 2 mg , and fentanyl 50 micrograms . Indication for the procedure= patient complaining of low back pain , examination was positive for severe tenderness over the left sacroiliac joints , and patient diagnosed with sacroiliitis, for this reason he was good candidate for sacroiliac joint steroid injection. Description of the procedure= procedure risk and benefits discussed with the patient, including but not limited, risk of infection and bleeding, and ALLERGIC reaction to the medication and not complete pain relief and patient agreed with the preceding patient taken to the operating room, placed in prone position or standard monitors applied to the patient, sedation was given to decrease the patient's anxiety, then after induction of anesthesia back prepped with chlorhexidine 3 times , Then the left sacroiliac joint steroid injection done under strict sterile technique local infiltration of the skin and subcu interstitial at the location of the left sacroiliac joint then a 22-gauge Quincke Needle advanced slowly under fluoroscopy time placed in the left sacroiliac joint, needle placement confirmed with AP and oblique and lateral view then after appropriate needle placement confirmed and after negative aspiration 0.5% Marcaine 3 mL and 40 mg of Depo-Medrol injected in the left sacroiliac joint after negative aspiration patient tolerated the procedure well that any complications and she will follow up in clinic 3 weeks
[2020-11-14] MEDS ORDERED: IV FLUID CONTINUATION 850 ML IV ONE (12:55)
[2020-11-14 13:13] VITALS: BP 139/89; PULSE 75
--- NOTE | 2020-11-14 13:16 | FL ---
EXAMINATION TYPE: FL guided pain mgmt statistic DATE OF EXAM: 11/14/2020 HISTORY: Pain left si joint
== END 2020-11-14 13:26 | disposition home or self-care (01) ==
LOC: ORPAIN 12:02
PROVIDERS: ATTEND Specialist
DX: M46.1 Sacroiliitis, not elsewhere classified (principal); M47.816 Spondylosis without myelopathy or radiculopathy, lumbar region; Z88.5 Allergy status to narcotic agent
CPT/HCPCS: 27096; J2250; J1030; J3010; J2795

== ENCOUNTER → 2021-06-18 | Outpatient (CLI) | payer BC ==
[2021-06-18 11:59] VITALS: BP 131/89; PULSE 95; RESP 16; TEMP 98
--- NOTE | 2021-06-18 12:19 | P.PN ---
Subjective Progress Note Date: 06/18/21 Iggy is a 55-year-old male presented to clinic today for follow-up appointment. He has a history of lumbar spinal stenosis, lumbar radiculopathy, lumbar spondylosis with facet arthropathy without myelopathy, and SI joint dysfunction .He has not been seen in our office since October where he had a left-sided SI joint injection. Prior to that in September 2020 he had a radiofrequency ablation bilateral L4 5 L5-S1. Unfortunately none of those procedures offered him significant pain relief. 01/23/2021 he had a Coflex implant at L4 5 to help with his lumbar spinal stenosis. Today he presents with low back pain continually radiates into his left leg. He does have intermittent pain in his right leg but most of it stays to his left radiating down to the lateral portion of his leg into his foot. Pain is made worse with increased activity, walking, excessive sitting and standing. Pain is made better with rest. He has had physical therapy in the past which he continues to do at home exercises. He has not had any pain management intervention since his surgery in January. On average she rates his pain as 7 out of 10 on a 0-to-10 scale. Pain can be elevated up to an 8 or 9 out of 10. He denies any bowel or bladder dysfunction, saddle anesthesia, or any other red flag symptoms today. Objective - Exam Physical Examinations : -Constitutiona : Cooperative , not in acute distress . -HEENT : nech : supple , no Lymphadenopathy , normal thyroid size . : eyes : no ptosis , no icterus, no photophobia . - neurologic : Cranial nerve II to XII intact , no focal neurological deffecit . -psychatric : alert , oriented X 3 , appropriate affect , intact judgment and insight . -Lymphatic : no Lymphadenopathy . - musculoskeltal : Lumber spine moter stegnth lower extremities ,thigh and legs 5/5 Right side , 5/5 Left side deep tendon reflexes : normal Knee Jerk , normal ankle Jerk lumber facet Loading Test =positive Right , positive Left Range of motion of the lumbar spine Flexion 30 degrees, extension 10 degrees strait leg raising test = positive at 30 degree Fabere test= positive Right , and positive LT . Sever tenderness over the Sacroiliac joint on the Right , and Left sides Gaenslen test= positive right ,and positive left . Seated flexion test= positive right ,and positive Left . Distraction test= positive bilaterally Sacroiliac compression test= positive bilaterally Assessment and Plan Assessment: Assessment and plan Assessment: Lumbar spinal stenosis Lumbar radiculopathy Lumbar spondylosis with facet arthropathy without myelopathy SI joint dysfunction Post lumbar surgery with Coflex Plan: Patient could benefit from caudal epidural steroid injection Dr. Gatica was available by phone for consultation during his visit. I have spent 26 minutes on patient care today. The time was used to review the medical records including relevant urine studies and Prescription history (MAPs), review of the available imaging, evaluation and examination of the patient, coordination of care with the medical staff and if applicable referring physicians, as well as creation of the medical record. - PQRS measures = - Patient's medications are documented in the chart. -Tobacco use is negative -Patient's has not received pneumococcal vaccine. -Advanced care planning discussed, patient not eligible. -Opiate contract not signed. -Pain positive and follow-up visit/procedure is scheduled. -Patient's blood pressure measured 131/89 , and documented in the record ,and patient will follow up with the primary care. -Patient was not identified as an unhealthy alcohol user Time with Patient: Less than 30
== END ==
LOC: PNWHC3 11:07
PROVIDERS: ATTEND Student in an Organized Health Care Education/Training Program
DX: M48.061 Spinal stenosis, lumbar region without neurogenic claudication (principal); M47.26 Other spondylosis with radiculopathy, lumbar region; M53.3 Sacrococcygeal disorders, not elsewhere classified; M96.1 Postlaminectomy syndrome, not elsewhere classified; F17.200 Nicotine dependence, unspecified, uncomplicated; Z96.698 Presence of other orthopedic joint implants; Z88.5 Allergy status to narcotic agent
CPT/HCPCS: 99211

== ENCOUNTER 2021-08-05 07:24 | Day surgery (SDC) | payer BC ==
[2021-07-29 14:05] VITALS: BMI 28.9
[2021-08-05 07:51] VITALS: TEMP 75
[2021-08-05] MEDS ORDERED: fentaNYL (PF) 50 MCG/ML 2 ML AMP ONE (08:36)
[2021-08-05] MEDS ORDERED: methylPREDNISolone ACETATE 40 MG/ML 1 ML VIAL ONE (08:36)
[2021-08-05] MEDS ORDERED: MIDAZOLAM 2 MG/2 ML VIAL ONE (08:36)
[2021-08-05] MEDS ORDERED: IOPAMIDOL M200 10 ML VIAL ONE (08:36)
--- NOTE | 2021-08-05 09:06 | P.PCN ---
Date of Procedure: 08/05/21 Description of Procedure: PREOPERATIVE DIAGNOSIS: Failed back surgery, and lumbar radiculopathy. POSTOPERATIVE DIAGNOSIS: Failed back surgery, and lumbar radiculopathy. PROCEDURE: 1. Caudal epidural steroid injection under fluoroscopic guidance #1. 2. Caudal epidurogram. SURGEON: Girma Tai ANESTHESIA: Local with 1% lidocaine; IV sedation : Versed and fentanyl EBL: None. Specimens removed: None Complications: None Fluoroscopic image: saved to electronic medical records PROCEDURE INDICATION: Patient had a history of lumbar postlaminectomy syndrome, failed with conservative therapy. pain radiating distally returns for caudal epidural steroid injection. PROCEDURE DESCRIPTION: The patient was seen and identified in the preoperative area. Risks, benefits, complications, and alternatives were discussed with the patient. The patient agreed to proceed with the procedure and signed the consent. IV was started, and vital signs were stable. Patient was taken to the OR and time out was completed. The patient was placed in the prone position on procedure table and a pillow was placed under the abdomen to reduce lumbar lordosis. The lumbosacral area was prepped and draped in the usual sterile fashion. Critical pause was taken. Vital signs were closely monitored during the procedure. Using lateral fluoroscopy the anterior-posterior plates of the sacrum were identified and the skin and deeper tissues corresponding into sacrococcygeal ligament were anesthetized using approximately 3 mL of 1% lidocaine. Then under fluoroscopy, a 3-1/2-inch 20-gauge Tuohy epidural needle was guided through the sacrococcygeal ligament, and into the epidural space. After negative aspiration, a 1 mL of Isovue contrast dye was injected with epidurogram. Again after negative aspiration for CSF, blood, and with no paresthesias, Depo-Medrol 80mg, with 10ml of preservative free normal saline(total of 11ml) solution was injected with washout of epidurogram. Needle was withdrawn intact. Skin was cleansed, and bandage was applied. DISPOSITION / PLANS: The patient was placed in a supine position and transferred to the recovery area in a stable condition for observation and was discharged from the recovery room after meeting discharge criteria. Home discharge instructions given to the patient by the staff. The patient was reexamined prior to discharge. The patient will schedule a follow up in the clinic in 4 weeks.
[2021-08-05] MEDS ORDERED: IV FLUID CONTINUATION 1,000 ML IV ONE (09:08)
[2021-08-05 09:10] VITALS: RESP 16
--- NOTE | 2021-08-05 09:13 | FL ---
EXAMINATION TYPE: FL guided pain mgmt statistic DATE OF EXAM: 08/05/2021 CLINICAL HISTORY: Sacral pain. TECHNIQUE: Fluoroscopy. COMPARISON: None. FINDINGS: Fluoroscopic guidance was provided during pain relief procedure performed by Dr. Adams . A total of 17 seconds of fluoroscopic time was utilized during the procedure and two spot images ar e acquired. Images acquired shows needle localization from posterior-inferior approach at level of t he mid sacrum. IMPRESSION: As Above.
[2021-08-05] MEDS ORDERED: LACTATED RINGERS 1,000 ML IV SCH (09:15)
[2021-08-05 09:23] VITALS: BP 111/76; PULSE 67
== END 2021-08-05 09:43 | disposition home or self-care (01) ==
LOC: ORPAIN 07:24
DX: M54.16 Radiculopathy, lumbar region (principal); M96.1 Postlaminectomy syndrome, not elsewhere classified; M19.90 Unspecified osteoarthritis, unspecified site; I10 Essential (primary) hypertension; R00.2 Palpitations; Z98.890 Other specified postprocedural states; Z88.5 Allergy status to narcotic agent
CPT/HCPCS: 62323; J2250; J1030; J3010; Q9966; 99152; 99153

== ENCOUNTER → 2021-09-01 | Outpatient (CLI) | payer BC ==
--- NOTE | 2021-09-01 10:33 | P.PN ---
Subjective Progress Note Date: 09/01/21 Principal diagnosis: A 56 yr old male with a history of severe and chronic low back pain secondary to lumbar degenerative disc diseases and lumbar spondylosis with facet arthropathy presents today for a follow-up of a caudal KATARINA. Patient states he experienced 0% pain relief status post procedure. Pain level is currently at 8 out of 10 in intensity, sharp, burning in the lower left spine with radiation of tingling and numbness down the left lower extremity. Pain is provoked by palpation and standing for 30 minutes. Pain is alleviated with medications, injections, heat, physical therapy, massage and repositioning. Interventional pain procedures completed include Caudal KATARINA Patient is currently on Neurontin 300mg TID and Celebrex from Dr Jaeger Patient denies any side effects of the medication(s), denies excessive drowsiness or sleepiness, denies suicidal ideation and reports that the current pain medication is helping to control the pain and improve activities of daily living. Patient denies any motor or sensory deficits. Patient denies any fever or night sweats, denies any change in the bowel movements or urination. Physical Examination: -Constitutional: Cooperative. Not in acute distress . -HEENT: Neck is supple. No lymphadenopathy. No thyromegaly. Normal thyroid size. Eyes: No ptosis , no icterus, no photophobia. ENT: No auditory deficits. Normal oropharynx. No Thrush. - Respiratory: Chest clear to auscultations bilaterally. No wheezing. No rhonchi. - Cardiovascular: Regular rate and rhythm. S1 / S2 , no S3 , no S4. - Gastrointestinal: Abdomen soft no tenderness. Bowel sounds positive in all four quadrants. No organomegaly. - Genitourinary: Deferred. - Neurologic: Cranial nerve II to XII intact. No focal neurological deficits. - Psychatric: Alert & oriented x 3. Matching mood & appropriate affect. Judgment and insight intact. - Lymphatic: No Lymphadenopathy. - Musculoskeletal: Cervical spine: Muscle bulk/ tone/ strength in the bilateral upper extremities normal. Facet loading test cervical area positive. Lumbar spine: Motor bulk/ tone/ strength lower extremities , thigh and legs : 5/5 Deep tendon reflexes : Normal Knee Jerk. Normal Ankle Jerk . Lumbar Facet Loading Test positive over the left L5 facet Limited rotation and lateral flexion due to pain Straight Leg Raise: positive at 30 degree right side/ left side Nikole test: positive right side / left side Range of motion: Flexion of the lumbar spine 60 degrees Range of motion: Extension of the lumbar spine <20 degrees Severe tenderness over the Sacroiliac joint: right side / left side Assessment and plan: Chronic low back pain secondary to lumbar degenerative disc disease , l umbar spondylosis with facet arthropathy without myelopathy Recommendation for a Left L4 to L5 TFESI Risks, benefits of procedure discussed and patient verbalized understanding Denies aspirin or anticoagulant use All patient questions answered MAPS reviewed and it was appropriate. I have spent 31 minutes on patient care today. Dr Gatica was available by [employer] for the evaluation of this patient. The time was used to review the medical records including relevant urine studies and Prescription history (MAPs), review of the available imaging, evaluation and examination of the patient, coordination of care with the medical staff and if applicable referring physicians, as well as creation of the medical record PQRS Measure Charge Sheet Mode of Arrival: Cane - Pain Location Lower Back Non-Pharmacological Interventions: Inactivity, Sitting Pharmacological Interventions: PRN Medication, Prophylactic Medication PQRS Narrative: Smoking Status Current some day smoker Pain Intensity [Lower Back] 10 Scale Used Numeric (1 - 10) Hx Alcohol Use (MH) Yes Home Medications: Ambulatory Orders Celecoxib [CeleBREX] 200 mg PO BID 04/17/20 HYDROcodone/APAP 7.5-325MG [[place] 7.5-325] 1 tab PO BID PRN 05/06/20 Gabapentin [Neurontin] 300 mg PO TID #90 cap 06/05/20 Lisinopril [Prinivil] 10 mg PO QAM 07/29/21 Pantoprazole [Protonix] 40 mg PO DAILY PRN 07/29/21
[2021-09-01 10:38] VITALS: BP 131/88; PULSE 80; RESP 18; TEMP 98.6
== END ==
LOC: PNWHC3 09:52
PROVIDERS: ATTEND Physician Assistant Medical
DX: G89.29 Other chronic pain (principal); M51.36 Other intervertebral disc degeneration, lumbar region; M47.816 Spondylosis without myelopathy or radiculopathy, lumbar region; F17.200 Nicotine dependence, unspecified, uncomplicated; Z88.5 Allergy status to narcotic agent
CPT/HCPCS: 99211

== ENCOUNTER 2021-09-30 07:13 | Day surgery (SDC) | payer BC ==
[2021-09-29 13:22] VITALS: BMI 29.5
[2021-09-30 07:39] VITALS: TEMP 97.4
[2021-09-30] MEDS ORDERED: LACTATED RINGERS 1,000 ML IV ONE (07:49)
[2021-09-30] MEDS ORDERED: fentaNYL (PF) 50 MCG/ML 2 ML AMP ONE (08:15)
[2021-09-30] MEDS ORDERED: DEXAMETHASONE SOD PHOSPHATE 10 MG/ML 1 ML VIAL ONE (08:15)
[2021-09-30] MEDS ORDERED: IOPAMIDOL M200 10 ML VIAL ONE (08:15)
[2021-09-30] MEDS ORDERED: MIDAZOLAM 2 MG/2 ML VIAL ONE (08:15)
[2021-09-30] MEDS ORDERED: IV FLUID CONTINUATION 1,000 ML IV ONE (08:33)
--- NOTE | 2021-09-30 09:13 | FL ---
EXAMINATION TYPE: FL guided pain mgmt statistic DATE OF EXAM: 09/30/2021 CLINICAL HISTORY: Transforaminal EPI TECHNIQUE: Fluoroscopy. COMPARISON: 08/05/2021 FINDINGS: Fluoroscopic guidance was provided during procedure performed by Dr. Valentine. A total of 11 seconds of fluoroscopic time was utilized during the procedure and 2 spot images were acquired. IMPRESSION: As Above.
[2021-09-30 09:28] VITALS: BP 120/81; PULSE 59; RESP 16
--- NOTE | 2021-09-30 12:30 | P.PCN ---
Date of Procedure: 09/30/21 Description of Procedure: Description of Procedure: PREOPERATIVE DIAGNOSIS: Lumbar radiculopathy POSTOPERATIVE DIAGNOSIS: Lumbar radiculopathy PROCEDURE 1. Transforaminal epidural steroid injection under fluoroscopic guidance at L4-5 level - LEFT side 2. Lumbar epidurogram. SURGEON: Jann Toledo MD ANESTHESIA: Local with 1% lidocaine; IV sedation with 2mg Versed and 100mcq fentanyl. EBL: Minimal PROCEDURE INDICATION: The patient with low back pain and radiculopathy symptoms unresponsive to conservative treatment. PROCEDURE DESCRIPTION / TECHNIQUE: The patient was seen and identified in the preoperative area. Risks, benefits, complications, and alternatives were discussed with the patient. The patient agreed to proceed with the procedure and signed the consent. IV was started, and vital signs were stable. Patient was taken to the OR and time out was completed. The patient was placed in the prone position on procedure table and a pillow was placed under the abdomen to reduce lumbar lordosis. The lumbosacral area was prepped and draped in the usual sterile fashion. Critical pause was taken. Vital signs were closely monitored during the procedure. Conscious sedation was used during the procedure to decrease patients anxiety. The vertebral body of the lumbar vertebra L4 was squared off by tilting the C-arm cephalad then the C-arm was tilted to the oblique position and the target point was at the 6 o'clock position of the pedicle of then skin and deeper tissues were localized with 1% lidocaine. Subsequently, a 22-gauge 3.5- inch spinal needle was advanced under a tunneled view fluoroscopic guidance just underneath the chin of the Deondre dog at the . Under lateral fluoroscopy, the needle was then advanced to the middle of the upper one third of the foramen between(L4-5). After negative aspiration of CSF and blood and with no paresth esias, 1 mL of omnipaque contrast dye was injected excellent epidurogram and outlining of the L nerve root was identified. Subsequently, 2 mL of block solution containing 10 mg of Decadron and 1 mL of Lidocaine 1% PF was injected. Needle was removed and the same . At the end of the procedure, skin was cleansed, and bandages were applied. COMPLICATIONS: None DISPOSITION / PLANS: The patient was placed in a supine position and transferred to the recovery area in a stable condition for observation. There was no evidence of lower extremity motor or sensory deficit after the procedure. Patient was discharged from the recovery room after meeting discharge criteria. Home discharge instructions were given to the patient by the staff.
== END 2021-09-30 09:05 | disposition home or self-care (01) ==
LOC: ORPAIN 07:13
PROVIDERS: ATTEND Anesthesiology
DX: M54.16 Radiculopathy, lumbar region (principal); Z88.5 Allergy status to narcotic agent
CPT/HCPCS: 64483; J2250; J1100; J3010; Q9966; 99152

== ENCOUNTER → 2023-08-11 | Outpatient (CLI) | payer BC, MEDICARE ==
[2023-08-11 11:46] VITALS: BP 140/78; PULSE 69; RESP 15; TEMP 97.2
--- NOTE | 2023-08-11 14:35 | P.PAINPG ---
PQRS Measure Charge Sheet Comment: A 57 yr old male with a history of severe and chronic LBP x 1 yr secondary to post laminectomy syndrome today for evaluation s/p L TFESI L4-L5 #1. Patient states he experienced 50% pain relief x 1 mo s/p procedure. Pain level is currently at 7 /10 in intensity, predominantly axial, sharp/ burning in the lo wer left spine with occasional radiation of tingling and numbness down the LLE. Pain is provoked by palpation and standing for 30 minutes. Pain is alleviated with medications, injections, heat, PT x 3 wks which he is currently in (had a 1 mo interruption due to a in the family), massage and repositioning. Oswestry axial pain score of 21. Interventional pain procedures completed include Caudal KATARINA, L TFESI L4-L5 (Sep 2021) Patient is currently on Neurontin 300mg TID and Celebrex from Dr Jaeger Patient denies any side effects of the medication(s), denies excessive drowsiness or sleepiness, denies suicidal ideation and reports that the current pain medication is helping to control the pain and improve activities of daily living. Patient denies any motor or sensory deficits. Patient denies any fever or night sweats, denies any change in the bowel movements or urination. Physical Examination: -Constitutional: Cooperative. Not in acute distress . -HEENT: Neck is supple. No lymphadenopathy. No thyromegaly. Normal thyroid size. Eyes: No ptosis , no icterus, no photophobia. ENT: No auditory deficits. Normal oropharynx. No Thrush. - Respiratory: Chest clear to auscultations bilaterally. No wheezing. No rhonchi. - Cardiovascular: Regular rate and rhythm. S1 / S2 , no S3 , no S4. - Gastrointestinal: Abdomen soft no tenderness. Bowel sounds positive in all four quadrants. No organomegaly. - Genitourinary: Deferred. - Neurologic: Cranial nerve II to XII intact. No focal neurological deficits. - Psychatric: Alert & oriented x 3. Matching mood & appropriate affect. Judgment and insight intact. - Lymphatic: No Lymphadenopathy. - Musculoskeletal: Cervical spine: Muscle bulk/ tone/ strength in the bilateral upper extremities normal. Facet loading test cervical area positive. Lumbar spine: +well- healed incisional scar intact Motor bulk/ tone/ strength lower extremities , thigh and legs : 5/5 Deep tendon reflexes : Normal Knee Jerk. Normal Ankle Jerk . Vertebral body TTP over L5 Lumbar Facet Loading Test positive over the left L5 facet Limited rotation and lateral flexion due to pain Straight Leg Raise: positive at 30 degree right side/ left side Nikole test: positive right side / left side Range of motion: Flexion of the lumbar spine 60 degrees Range of motion: Extension of the lumbar spine <20 degrees Severe tenderness over the Sacroiliac joint: right side / left side Assessment and plan: Chronic LBP secondary to post laminectomy syndrome Recommendation for a KATARINA L5-S1 #1. May need a series of injections for optimal pain relief. Risks, benefits of procedure discussed and patient verbalized understanding. Protocol for discontinuation/continuation of medications surrounding procedure discussed./ All patient questions answered MAPS reviewed and it was appropriate. I have spent 31 minutes on patient care today. Dr Gatica was available by phone for the evaluation of this patient. The time was used to review the medical records including relevant urine studies and Prescription history (MAPs), review of the available imaging, evaluation and examination of the patient, coordination of care with the medical staff and if applicable referring physicians, as well as creation of the medical record PQRS Narrative: Smoking Status Current some day smoker Hx Alcohol Use (MH) Yes Home Medications: Ambulatory Orders Celecoxib [CeleBREX] 200 mg PO BID 04/17/20 HYDROcodone/APAP 7.5-325MG [[place] 7.5-325] 1 tab PO BID PRN 05/06/20 Gabapentin [Neurontin] 300 mg PO TID #90 cap 06/05/20 Pantoprazole [Protonix] 40 mg PO DAILY PRN 07/29/21 lisinopriL [Prinivil] 10 mg PO QAM 07/29/21 Controlled Substance Measures - Controlled Substance Measures Is patient prescribed a controlled substance at discharge?: No
== END ==
LOC: PNWHC3 11:00
PROVIDERS: ATTEND Specialist
DX: M47.26 Other spondylosis with radiculopathy, lumbar region (principal); M43.26 Fusion of spine, lumbar region; M96.1 Postlaminectomy syndrome, not elsewhere classified; G89.29 Other chronic pain; F17.200 Nicotine dependence, unspecified, uncomplicated; F12.90 Cannabis use, unspecified, uncomplicated; Z88.5 Allergy status to narcotic agent
CPT/HCPCS: 99211

== ENCOUNTER 2023-08-19 12:16 | Day surgery (SDC) | payer MEDICARE ==
[2023-08-19 13:01] VITALS: TEMP 98
[2023-08-19] MEDS ORDERED: methylPREDNISolone ACETATE 80 MG/ML 1 ML VIAL ONE (13:31)
[2023-08-19] MEDS ORDERED: IOPAMIDOL M200 10 ML VIAL ONE (13:31)
--- NOTE | 2023-08-19 13:49 | P.PCN ---
Date of Procedure: 08/19/23 Procedure(s) Performed: PREOPERATIVE DIAGNOSIS: 1- Lumbar postlaminectomy pain syndrome 2-lumbar radiculopathy POSTOPERATIVE DIAGNOSIS: Same As preop diagnosis PROCEDURE 1. Lumbar epidural steroid injection under fluoroscopic guidance at the L5-S1 level. (Fluoroscopy imaging was available in radiology department) 2. Lumbar epidurogram. ANESTHESIA: Lidocaine 1% 3 and then only. EBL: Minimal PROCEDURE INDICATION: The patient with low back pain and radiculitis symptoms unresponsive to conservative treatment. Fluoroscopy was used to optimize visualization of the needle placement and to maximize safety. PROCEDURE DESCRIPTION / TECHNIQUE: The patient was seen and identified in the preoperative area. Risks, benefits, complications including but not limited to infections ,bleeding ,allergic reaction to the medications ,nerve damage and not complete pain releife , and alternatives were discussed with the patient. The patient agreed to proceed with the procedure and signed the consent, and vital signs were stable. Patient was taken to the OR and time out was completed. The patient was placed in the prone position on procedure table and a pillow was placed under the abdomen to reduce lumbar lordosis. The lumbosacral area was prepped and draped in the usual sterile fashion.ere closely monitored during the procedure. Vital signs was monitered during the entire procedure. Using anterior-posterior fluoroscopy, the L5-S1 interlaminar space was identified and the skin over this site was marked and then infiltrated with 1% lidocaine subcutaneously. Subsequently, a 20-gauge Tuohy epidural needle was inserted and advanced toward the epidural space using the ``Loss of resistance technique and guided by AP and lateral fluoroscopy. The correct needle position in the epidural space was verified with the injection of 2 mL of the water soluble contrast dye Isovue 200 contrast and observing an excellent epidurogram with the epidural spread of the dye, after negative aspiration for blood and CSF and in the absence of paresthesias. Again after negative aspiration, a 6 ml mixture containing 80 mg of Depo-medrol ( Preservetive Free ), and 2 ml of preservative free Normal Saline, and 2 ml of preservative free lidocaine 1% solution was injected and a washout of epidurogram was seen. Needle was withdrawn intact, skin was cleansed, and bandages were applied. COMPLICATIONS: None DISPOSITION / PLANS: The patient was placed in a supine position and transferred to the recovery area in a stable condition for observation. There was no evidence of lower extremity motor or sensory deficit after the procedure. Patient was discharged from the recovery room after meeting discharge criteria. Home discharge instructions were given to the patient by the staff. The patient was reexamined prior to discharge. The patient will schedule a follow up in the clinic in 2-4 weeks. In the future if patient continues to have pain I recommend to do left-sided transforaminal epidural steroid injection at L4-5 and L5-S1, because patient had radicular symptoms in the low back area with radiation to the left lower extremity associated with numbness and tingling sensation, dermatomal distribution of L4-5 and L5-S1, and also because patient had history of lumbar laminectomy and fusion surgery, by doing transforaminal epidural ,this will minimize the chance of postdural puncture headache
[2023-08-19 13:52] VITALS: RESP 20
--- NOTE | 2023-08-19 14:01 | FL ---
Fluoroscopy INDICATION: Pain FINDINGS: Fluoroscopy time: 18.8 seconds. Total dose area product (DAP) in uGy*m?, mGy*cm? (or similar): 0.80975 Images obtained: 2. IMPRESSION: 1. Documentation of fluoroscopy.
[2023-08-19 14:18] VITALS: BP 133/89; PULSE 69
== END 2023-08-19 14:04 | disposition home or self-care (01) ==
LOC: ORPAIN 12:16
PROVIDERS: ATTEND Specialist
DX: M96.1 Postlaminectomy syndrome, not elsewhere classified (principal); M54.16 Radiculopathy, lumbar region; Z88.5 Allergy status to narcotic agent
CPT/HCPCS: 62323; J1040; Q9966

== ENCOUNTER 2024-03-05 14:22 | Emergency (ER) | payer MEDICARE ==
[2024-03-05] MEDS ORDERED: LIDOCAINE 1% INJ 10MG/ML (20 ML MDV) ONE (14:58)
== END 2024-03-05 15:38 | disposition home or self-care (01) ==
LOC: EC 14:22
CPT/HCPCS: 12002; 99282